=== PATIENT | female | born 1955 | race Caucasian/White ===

== ENCOUNTER 2016-07-29 04:38 | Emergency (ER) | payer OTHER ==
[2016-07-29] MEDS ORDERED: NS 1,000 ML IV ONE ×2 (04:45)
[2016-07-29] MEDS ORDERED: ONDANSETRON 4 MG/2 ML VIAL IVP ONE ×3 (04:45→07:05)
[2016-07-29] MEDS ORDERED: methylPREDNISolone SOD SUCC 125 MG/2 ML VIAL IVP ONE (04:46)
--- NOTE | 2016-07-29 04:48 | EDPHY ---
H & P Time Seen by Provider: 07/29/16 04:45 HPI/ROS: CHIEF COMPLAINT: Nausea, vomiting HISTORY OF PRESENT ILLNESS: Patient is a 61-year-old female who comes to the emergency department complaining of nausea and vomiting for the last 8 hours. She denies chest pain or shortness of breath. She states that it began shortly after dinner. She has a history of lupus and take steroids chronically. she is currently on a steroid taper down from a maximum of 40 to 12.5 mg. She states however that she does get [place] like symptoms with acute illness and is requesting a steroid bolus. she has not had a fever. She has not had any diarrhea. She denies recent travel or antibiotic use. She has a history of appendectomy, cholecystectomy and hysterectomy. REVIEW OF SYSTEMS: Constitutional: denies: chills, fever, recent illness, recent injury EENTM: denies: blurred vision, double vision, nose congestion Respiratory: denies: cough, shortness of breath Cardiac: denies: chest pain, irregular heart rate, lightheadedness, palpitations Gastrointestinal/Abdominal: See HPI Genitourinary: denies: dysuria, frequency, hematuria, pain Musculoskeletal: denies: joint pain, muscle pain Skin: denies: lesions, rash, jaundice, bruising Neurological: denies: headache, numbness, paresthesia, tingling, dizziness, weakness Hematologic/Lymphatic: denies: blood clots, easy bleeding, easy bruising Immunologic/allergic: denies: HIV/AIDS, transplant EXAM: GENERAL: Well-appearing, well-nourished and in no acute distress. HEAD: Atraumatic, normocephalic. EYES: Pupils equal round and reactive to light, extraocular movements intact, sclera anicteric, conjunctiva are normal. ENT: TMs normal, nares patent, oropharynx clear without exudates. Dry mucous membranes. NECK: Normal range of motion, supple without lymphadenopathy or JVD. LUNGS: Breath sounds clear to auscultation bilaterally and equal. No wheezes rales or rhonchi. HEART: Regular rate and rhythm without murmurs, rubs or gallops. ABDOMEN: Soft, nontender, normoactive bowel sounds. No guarding, no rebound. No masses appreciated. BACK: No CVA tenderness, no spinal tenderness, step-offs or deformities EXTREMITIES: Normal range of motion, no pitting or edema. No clubbing or cyanosis. NEUROLOGICAL: Cranial nerves II through XII grossly intact. Normal speech, normal gait. 5/5 strength, normal movement in all extremities, normal sensation PSYCH: Normal mood, normal affect. SKIN: Warm, dry, normal turgor, no visible rashes or lesions. Source: Patient Exam Limitations: No limitations - Personal History Tetanus Vaccine Date: last 10 years - Medical/Surgical History Hx Asthma: No Hx Chronic Respiratory Disease: No Hx Diabetes: No Hx Cardiac Disease: No Hx Renal Disease: No Hx Cirrhosis: No Hx Alcoholism: No - Family History Significant Family History: No pertinent family hx - Social History Smoking Status: Never smoked Alcohol Use: None Drug Use: None Constitutional: Initial Vital Signs Temperature (C) 37.1 C 07/29/16 04:40 Heart Rate 72 07/29/16 04:40 Respiratory Rate 16 07/29/16 04:40 Blood Pressure 119/72 07/29/16 04:40 O2 Sat (%) 99 07/29/16 04:40 O2 Delivery Mode Room Air Allergies/Adverse Reactions: No Known Allergies Allergy (Verified 07/29/16 05:08) Home Medications: Medication Instructions Recorded Aspirin [Aspirin 81mg (OTC)] 81 mg PO DAILY 12/30/11 Calcium Citrate [Citracal (OTC)] 400 mg PO BID 12/30/11 Cholecalciferol Vit D3 [Vitamin D3 4,000 units PO DAILY 12/30/11 2000 units (OTC)] Estradiol [Vivelle-Dot 0.075MG 0.075 mg TD MoTh@0800 12/30/11 (RX)] Folic Acid [Folic Acid 1 MG (RX)] 2 mg PO DAILY06 12/30/11 Hydroxychloroquine Sulfate 400 mg PO DAILY06 12/30/11 [Plaquenil 200 mg (RX)] Levothyroxine [Synthroid 137 mcg 137 mcg PO DAILY06 12/30/11 (RX)] Margie-3 Ethyl Est-Lovaza [Lovaza 1 2 gm PO BID 12/30/11 gm (RX)] Pharmacy Completed 12/30/2011 12/30/11 predniSONE [Prednisone] 2 mg PO DAILY06 12/30/11 Ondansetron Odt [Zofran Odt 4 mg 4 mg PO Q4 PRN #20 tab 07/29/16 (RX)] Medical Decision Making - Diagnostics EKG Interpretation: An EKG obtained and was read and documented in trace view. Please see trace view for full reading and report. Sinus rhythm, first-degree block, no acute ischemic changes ED Course/Re-evaluation: 6:00 a.m. the patient is feeling much better. She is I will treat her with Toradol and Zofran. Her abdominal exam remains benign. 7:00 a.m. the patient is feeling completely better. She is asking for doses Zofran prior to leaving. I will also give her a prescription. We discussed indications for returning. Her repeat abdominal exam is benign. Differential Diagnosis: Partial list of the Differential diagnosis considered include but were not limited to; gastritis, food poisoning and although unlikely based on the history and physical exam, I also considered pancreatitis, [place]'s, electrolyte abnormality. - Data Points Laboratory Results: Laboratory Results 07/29/16 04:40 07/29/16 04:40 Medications Given: Discontinued Medications Sodium Chloride (Ns) 1,000 mls @ 0 mls/hr IV ONCE ONE PRN Reason: Wide Open Stop: 07/29/16 04:46 Last Admin: 07/29/16 05:00 Dose: 1,000 mls Sodium Chloride (Ns) 1,000 mls @ 0 mls/hr IV ONCE ONE PRN Reason: Wide Open Stop: 07/29/16 04:46 Last Admin: 07/29/16 05:45 Dose: 1,000 mls Ketorolac Tromethamine (Toradol) 30 mg IVP EDNOW ONE Stop: 07/29/16 06:00 Last Admin: 07/29/16 06:06 Dose: 30 mg Methylprednisolone Sodium Succinate (Solu-Medrol) 125 mg IVP EDNOW ONE Stop: 07/29/16 04:47 Last Admin: 07/29/16 05:00 Dose: 125 mg Ondansetron HCl (Zofran) 4 mg IVP EDNOW ONE Stop: 07/29/16 04:46 Last Admin: 07/29/16 05:00 Dose: 4 mg Ondansetron HCl (Zofran) 4 mg IVP EDNOW ONE Stop: 07/29/16 06:00 Last Admin: 07/29/16 06:05 Dose: 4 mg Ondansetron HCl (Zofran Odt 4 Mg Prepack#2) 1 btl TAKEHOME EDNOW ONE Stop: 07/29/16 07:06 Last Admin: 07/29/16 07:38 Dose: 1 btl Ondansetron HCl (Zofran) 4 mg IVP EDNOW ONE Stop: 07/29/16 07:06 Last Admin: 07/29/16 07:38 Dose: 4 mg Departure - Departure Disposition: Home, Routine, Self-Care Clinical Impression: Acute gastroenteritis Condition: Fair Instructions: Ondansetron (By mouth), Gastroenteritis (ED) Referrals: Thompson Servin MD [Primary Care Provider] - As per Instructions Prescriptions: Ondansetron Odt [Zofran Odt 4 mg (RX)] 4 mg PO Q4 PRN #20 tab PRN Reason: Nausea & Vomiting
[2016-07-29 05:03] LABS: % IMMATURE GRANULYOCYTES 0.3 % (0.0-1.1); ABSOLUTE IMMATURE GRANULOCYTES 0.02 10^3/uL (0.00-0.10); ADD DIFF? NO; ADD MORPH? NO; ADD SCAN? NO; ATYPICAL LYMPHOCYTE FLAG 0 (0-99); FRAGMENT RBC FLAG 0 (0-99); HEMATOCRIT 41.3 % (38.0-47.0); HEMOGLOBIN 14.2 g/dL (12.6-16.3); LEFT SHIFT FLG 20 (0-99); LIPEMIA HEMOLYSIS FLAG 90 (0-99); MEAN CELL HEMOGLOBIN 32.1 pg (27.9-34.1); MEAN CELL HEMOGLOBIN CONCENTR. 34.4 g/dL (32.4-36.7); MEAN CELL VOLUME 93.2 fL (81.5-99.8); MEAN PLATELET VOLUME 9.3 fL (8.7-11.7); PLATELET CLUMPS FLAG 10 (0-99); PLATELET COUNT 312 10^3/uL (150-400); RED BLOOD CELL COUNT 4.43 10^6/uL (4.18-5.33); RED CELL DISTRIBUTION WIDTH 13.9 % (11.5-15.2)
--- NOTE | 2016-07-29 05:08 | CPEKG ---
Heart Rate: 72 RR Interval: 833 P-R Interval: 216 QRSD Interval: 112 QT Interval: 388 QTC Interval: 425 P [place]: 73 QRS [place]: 89 T Wave [place]: 73 EKG Severity - ABNORMAL ECG - EKG Impression: SINUS RHYTHM EKG Impression: FIRST DEGREE AV BLOCK EKG Impression: NONSPECIFIC INTRAVENTRICULAR CONDUCTION DELAY Electronically Signed By: Emile Lyons 29-Jul-2016 05:40:19
[2016-07-29 05:16] LABS: ANION GAP 12 mEq/L (8-16); CALCIUM 9.1 mg/dL (8.5-10.4); CARBON DIOXIDE 27 mEq/l (22-31); CHLORIDE 102 mEq/L (97-110); CREATININE 0.8 mg/dL (0.6-1.0); GLOMERULAR FILTRATION RATE > 60; GLUCOSE 144 mg/dL (70-100); POTASSIUM 3.7 mEq/L (3.5-5.2); SODIUM 141 mEq/L (134-144)
[2016-07-29 05:57] LABS: ALBUMIN 4.2 g/dL (3.5-5.0); BILIRUBIN,TOTAL 1.5 mg/dL (0.1-1.4); BILIRUBIN-CONJUGATED 0.5 mg/dL (0.0-0.5); TOTAL PROTEIN 7.2 g/dL (6.3-8.2)
[2016-07-29] MEDS ORDERED: KETOROLAC 30 MG/1 ML SDV IVP ONE (05:59)
[2016-07-29] MEDS ORDERED: ONDANSETRON 4 MG/2 ML VIAL ONE (06:00)
[2016-07-29] MEDS ORDERED: KETOROLAC 30 MG/1 ML SDV ONE (06:00)
[2016-07-29 06:07] VITALS: O2SAT 98
[2016-07-29] MEDS ORDERED: ONDANSETRON 4MG PREPACK#2 BTL TAKEHOME ONE (07:05)
[2016-07-29 07:40] VITALS: BP 96/60; PULSE 74; RESP 14; TEMP 99.5
[2016-07-29 16:23] LABS: AMYLASE 101 IU/L (30-110)
== END 2016-07-29 08:05 | disposition home or self-care (01) ==
LOC: EDUNIT#
DX: K52.9 Noninfective gastroenteritis and colitis, unspecified (principal); Z79.82 Long term (current) use of aspirin
CPT/HCPCS: 96374; J1885; J2405

== ENCOUNTER → 2016-08-05 | Outpatient (CLI) | payer OTHER ==
--- NOTE | 2016-08-05 11:05 | MR ---
MRI Cervical Spine (Without Contrast) Indication: Right arm weakness. Evaluate for C4 impingement. Technique: Sagittal T1, T2, and axial T2, 3D gradient echo MR sequences of the cervical spine without contrast. Comparison: None. Findings: C3 is retrolisthesed 2 mm on C4. Alignment is otherwise normal. Diskogenic Modic edema is p resent at C5-C6. Bone marrow signal is otherwise normal. No fracture, bone marrow replacing lesion, o r paraspinal mass. Cerebellar tonsils are in normal position. The spinal cord is minimally compresse d and deformed at C3-C4, C4-C5, and C5-C6. No cord edema, gliosis, or atrophy. C1-C2: Minimal synovial hypertrophy. Central canal is widely patent. C2-C3: Minimal disk desiccation. Facet hypertrophy results in mild bilateral neural foraminal narrowi ng. The central canal is widely patent. C3-C4: Grade 1 retrolisthesis of C3 on C4 combined with a diffuse broad-based osteophyte disk complex and facet hypertrophy results in moderate narrowing of the right central canal, severe narrowing of the right ventrolateral recess, severe narrowing of the right neural foramen and moderate stenosis of the left neural foramen. The central canal measures 6 mm AP. C4-C5: Diffuse broad-based osteophyte disk complex results in moderate central canal narrowing, worse off to the right, severe right neural foraminal stenosis and moderate left neural foraminal stenosis . The central canal measures 6 mm AP. C5-C6: Diffuse broad-based osteophyte disk complex combined with facet hypertrophy and ligamentum fla vum thickening results in moderate central canal narrowing, moderate to severe bilateral ventral late ral recess stenosis and severe left and moderate to severe right neural foraminal narrowing. Central canal measures 6 mm AP. C6-C7: Mild to moderate central canal narrowing due to broad-based disk bulge, uncovertebral and face t spurs. Moderate to severe right and moderate left neural foraminal encroachment. C7-T1: Widely patent central canal and neural foramina. No disk bulge. Impression: 1. Moderate central canal narrowing at C3-C4, C4-C5, and C5-C6 due to broad-based osteophyte disk co mplex and facet hypertrophy. The cord is minimally compressed at these levels however, no associated cord edema or gliosis. 2. Severe right neural foraminal stenosis at C3-C4 and C4-C5 due to broad-based disk bulge, facet hy pertrophy and uncovertebral spurs. 3. Severe left neural foraminal stenosis at C5-C6. Comment: Results called to Dr. Servin shortly after study completion on August 05, 2016.
== END ==
LOC: FIMAGING 09:16
PROVIDERS: ATTEND Internal Medicine
DX: M50.221 Other cervical disc displacement at C4-C5 level (principal); M48.02 Spinal stenosis, cervical region; M50.21 Other cervical disc displacement, high cervical region; M46.02 Spinal enthesopathy, cervical region

== ENCOUNTER → 2016-11-10 | Outpatient (CLI) | payer OTHER | LOC: FIMAGING 14:20 | PROVIDERS: ATTEND Internal Medicine | DX: J84.10 Pulmonary fibrosis, unspecified (principal) ==

== ENCOUNTER → 2016-11-22 | Outpatient (CLI) | payer OTHER | LOC: FIMAGING 16:31 | PROVIDERS: ATTEND Internal Medicine Rheumatology | DX: M79.641 Pain in right hand (principal); M79.642 Pain in left hand ==

== ENCOUNTER → 2016-12-02 | Outpatient (CLI) | payer OTHER | LOC: FIMAGING 16:51 | PROVIDERS: ATTEND Internal Medicine | DX: Z01.818 Encounter for other preprocedural examination (principal); M54.2 Cervicalgia ==

== ENCOUNTER → 2016-12-02 | Outpatient (CLI) | payer OTHER | LOC: FIMAGING 16:00 | PROVIDERS: ATTEND Internal Medicine | DX: Z12.31 Encounter for screening mammogram for malignant neoplasm of breast (principal); Z80.3 Family history of malignant neoplasm of breast | CPT/HCPCS: G0202 ==

== ENCOUNTER 2017-01-20 12:00 | Inpatient (IN) | payer OTHER ==
[2017-01-26] MEDS ORDERED: ceFAZolin 2 GM/DEXTROSE 100 ML IV ONE (06:00)
[2017-01-26] MEDS ORDERED: BACITRACIN 50,000 UNITS/10 ML SYR IRR ONE ×2 (08:35→14:19)
[2017-01-26] MEDS ORDERED: BUPIVACAINE/EPI 0.25% 30 ML SDV ONE (08:35)
[2017-01-26] MEDS ORDERED: PREDNISONE 5 MG PO SCH (09:00)
[2017-01-26] MEDS ORDERED: predniSONE 5 MG TAB PO SCH (09:00)
[2017-01-26] MEDS ORDERED: LR 1,000 ML IV ONE (11:10)
[2017-01-26] MEDS ORDERED: LIDOCAINE 1% 2 ML INJ ID PRN (11:10)
[2017-01-26] MEDS ORDERED: CEFAZOLIN 2 GM/DEXTROSE/100 ML BAG IV ONE (11:53)
[2017-01-26] MEDS ORDERED: MIDAZOLAM 2 MG/2 ML VIAL IVP ONE (12:08)
--- NOTE | 2017-01-26 12:09 | PDANEPAE ---
ANE History of Present Illness acdf ANE Past Medical History - Cardiovascular History Hx Hypertension: No Hx Arrhythmias: No Hx Chest Pain: No Hx Coronary Artery / Peripheral Vascular Disease: No Hx CHF / Valvular Disease: No Hx Palpitations: No - Pulmonary History Hx COPD: No Hx Asthma/Reactive Airway Disease: No Hx Recent Upper Respiratory Infection: No Hx Oxygen in Use at Home: No Hx Sleep Apnea: No Sleep Apnea Screening Result - Last Documented: Negative - Neurologic History Hx Cerebrovascular Accident: No Hx Seizures: No Hx Dementia: No - Endocrine History Hx Diabetes: No Endocrine History Comment: HYPOTHYROID - Renal History Hx Renal Disorders: Yes Renal History Comment: GETS A LOT OF BLADDER INFECTIONS - Liver History Hx Hepatic Disorders: No Hepatic History Comment: PANCREATITIS LAST OVER 10 YRS AGO - Neurological & Psychiatric Hx Hx Neurological and Psychiatric Disorders: Yes Neurological / Psychiatric History Comment: SITUATIONAL ANXIETY/PANIC ATTACKS - Cancer History Hx Cancer: No - Congenital Disorder History Hx Congenital Disorders: No - GI History Hx Gastrointestinal Disorders: Yes Gastrointestinal History Comment: DIVERTICULOSIS - Other Health History Other Health History: LUPUS FLARE 07/2016. RELATED TO NORO VIRUS. SEVERE EYE KERATITIS AND ULCERATIONS. RECENTLY LOW HGB AND HCT. TAKING IRON. HAIR FALLING OUT. SPINAL STENOSIS/RT ARM PARALYSIS - Chronic Pain History Chronic Pain: Yes (SKIN) - Surgical History Prior Surgeries: LETA. HYSTERECTOMY. APPY. LUMBAR LAMINECTOMY. RT LACRIMAL GLAND. LAISHA AUGMENTATION WITH REMVL AND REPLACEMENT ANE Review of Systems - Exercise capacity METS (RN): 4 METS ANE Patient History - Allergies Allergies/Adverse Reactions: No Known Allergies Allergy (Verified 07/29/16 05:08) - Home Medications Home Medications: Folic Acid [Folic Acid 1 MG (RX)] 3 mg PO DAILY06 12/30/11 [Last Taken 01/19/17] Ascorbic Acid [Vitamin C] 200 mg PO DAILY 12/21/16 [Last Taken 01/19/17] Cholecalciferol (Vitamin D3) [Vitajoy Daily D] 5,000 unit PO EVERY OTHER DAY [Last Taken 01/19/17] Cholecalciferol (Vitamin D3) [Vitajoy Daily D] 7,500 unit PO EVERY OTHER DAY [Last Taken 01/19/17] Estradiol [Vivelle-Dot 0.0375MG (*)] 0.0375 mg TD TuFr@0800 12/21/16 [Last Taken 01/26/17] Ferrous Sulfate [Iron] 325 mg PO DAILY 12/21/16 [Last Taken 01/25/17] Herbals/Supplements -Info Only 1 ea PO DAILY 12/21/16 [Last Taken 01/19/17] Levothyroxine [Synthroid 125 mcg (*)] 125 mcg PO DAILY06 12/21/16 [Last Taken ] Liothyronine Sodium [Cytomel 5 mcg (*)] 5 mcg PO DAILY 12/21/16 [Last Taken ] Multivitamins [Multivitamin (*)] 1 each PO DAILY 12/21/16 [Last Taken 01/19/17] [place]-3 Ethyl Est-Lovaza [Lovaza 1 gm (*)] 4 gm PO DAILY 12/21/16 [Last Taken ] Vitamin K2 90 mcg PO DAILY 12/21/16 [Last Taken 01/19/17] predniSONE [Prednisone] 5 mg PO DAILY 12/21/16 [Last Taken 01/26/17] Estradiol [VAGIFEM] 10 mcg VG Q3D 12/27/16 [Last Taken 01/19/17] - NPO status NPO Since - Liquids (Date): 01/26/17 NPO Since - Liquids (Time): 00:30 NPO Since - Solids (Date): 01/25/17 NPO Since - Solids (Time): 22:00 - Anes Hx Anes Hx: no prior problems - Smoking Hx Smoking Status: Never smoked ANE Labs/Vital Signs - Vital Signs Blood Pressure: 106/72 Heart Rate: 64 Respiratory Rate: 12 O2 Sat (%): 94 Height: 170.82 cm Weight: 56.245 kg ANE Physical Exam - Airway Mallampati Score: Class 2 Mouth exam: normal dental/mouth exam - Pulmonary Pulmonary: no respiratory distress - Cardiovascular Cardiovascular: regular rate and rhythym - ASA Status ASA Status: II ANE Anesthesia Plan Anesthesia Plan: general endotracheal anesthesia
[2017-01-26] MEDS ORDERED: ROCURONIUM 50 MG/5 ML VIAL ONE (12:21)
[2017-01-26] MEDS ORDERED: LIDOCAINE 2% 5 ML SDV ONE (12:21)
[2017-01-26] MEDS ORDERED: HYDROCORTISONE 100 MG/2 ML VIAL ONE (12:21)
[2017-01-26] MEDS ORDERED: PROPOFOL/EMULSION 500 MG/50 ML BOTTLE IV ONE ×2 (12:27→15:35)
[2017-01-26] MEDS ORDERED: REMIFENTANIL HCL 1 MG VIAL ONE ×2 (12:27→15:35)
[2017-01-26] MEDS ORDERED: PROPOFOL 200 MG/20 ML VIAL ONE (12:27)
[2017-01-26] MEDS ORDERED: fentaNYL 100 MCG/2 ML INJ ONE ×2 (12:27→17:41)
[2017-01-26] MEDS ORDERED: PHENYLEPHRINE 10 MG/ML SDV ONE (12:28)
[2017-01-26] MEDS ORDERED: THROMBIN (BOVINE) 5,000 UNIT VIAL TP ONE (12:35)
--- NOTE | 2017-01-26 12:46 | PDHPUP ---
History & Physical Update H&P update statement: This history and physical update is based on an assessment of the patient which was completed after admission or registration (within 24 hours), but prior to the surgery/procedure. H&P update: H&P reviewed & patient examined, no change in patient's condition since H&P completed
[2017-01-26] MEDS ORDERED: oxyCODONE IR 5 MG TAB PO PRN (12:48)
[2017-01-26] MEDS ORDERED: MAGNESIUM HYDROXIDE 30 ML UDCUP PO PRN (12:48)
[2017-01-26] MEDS ORDERED: BISACODYL 10 MG SUPP PR PRN (12:48)
[2017-01-26] MEDS ORDERED: LACTULOSE 20 GM/30 ML UDCUP PO PRN (12:48)
[2017-01-26] MEDS ORDERED: morphINE PCA 30 MG/30 ML PCA IV PRN (12:48)
[2017-01-26] MEDS ORDERED: NALOXONE HCL 0.4 MG/ML INJ IVP PRN (12:48)
[2017-01-26] MEDS ORDERED: ONDANSETRON DISINTEGRATING 4 MG TAB PO PRN (12:48)
[2017-01-26] MEDS ORDERED: ONDANSETRON 4 MG/2 ML VIAL ONE (13:41)
[2017-01-26] MEDS ORDERED: GLYCOPYRROLATE 0.2 MG/1 ML VIAL ONE (13:43)
[2017-01-26] MEDS ORDERED: MIDAZOLAM 2 MG/2 ML VIAL ONE (16:38)
[2017-01-26] MEDS ORDERED: MEPERIDINE 25 MG/ML SYR IVP PRN (17:12)
[2017-01-26] MEDS ORDERED: LR 500 ML IV PRN (17:12)
[2017-01-26] MEDS ORDERED: ALBUTEROL 3 ML DEYVIAL IH PRN (17:12)
[2017-01-26] MEDS ORDERED: HYDROmorphONE/DILAUDID 1 MG/ML SYR ONE ×2 (17:32→18:29)
--- NOTE | 2017-01-26 17:32 | POSTANESTH ---
Post Anesthetic Evaluation Cardiovascular Status: Normal, Stable Respiratory Status: Normal, Stable, Requires Airway Assist Pain Control: Adequate, Prn Tx Ordered Nausea/Vomiting Control: Adequate, Prn Tx Ordered Complications Possibly Related to Anesthesia: None Noted
--- NOTE | 2017-01-26 17:34 | SOAPPROG ---
SOAP Progress Note Assessment/Plan: Post Op Visit: S: Awake and alert. Pt with expected neck pain. O: AFVSS/PERRLA/EOMI no droop CN 2-12 grossly intact +lt touch 5/5 BUE/BLE = CDI neck soft and supple A/P: 61 yo female that is s/p ACDF C3-C6 -orders in place -call with any questions or concerns -pt seen by Dr Rea as well -collar in place 01/26/17 17:29 Objective: Vital Signs Temp Pulse Resp BP Pulse Ox 36.7 C 64 12 106/72 94 01/26/17 12:11 01/26/17 12:11 01/26/17 12:11 01/26/17 12:11 01/26/17 12:11 ICD10 Worksheet Patient Problems: Problems Problem Status Onset Arthrodesis status Acute Cervical radicular pain Acute Cervical spinal stenosis Acute - ICD10 Problem Qualifiers (1) Cervical spinal stenosis (2) Arthrodesis status (3) Cervical radicular pain
[2017-01-26] MEDS: HYDROmorphONE/DILAUDID 1 MG/ML SYR IVP PRN ×6 (17:38→19:08)
[2017-01-26] MEDS: fentaNYL 100 MCG/2 ML INJ IVP PRN ×2 (17:38→17:52)
[2017-01-26] MEDS ORDERED: DIAZEPAM 10 MG/2 ML SYR ONE (17:57)
[2017-01-26] MEDS: DIAZEPAM 10 MG/2 ML SYR IVP PRN ×2 (18:03→18:18)
[2017-01-26] MEDS: OMEGA-3 ETHYL EST-LOVAZA 1 GM CAP PO SCH (19:40)
[2017-01-26] MEDS: NON-FORMULARY NEW DRUG (Estradiol [Vagifem] 10 MCG) VG SCH (19:40)
[2017-01-26] MEDS: FERROUS SULFATE 325 MG TAB PO SCH (19:40)
[2017-01-26] MEDS: LIOTHYRONINE SODIUM 5 MCG TAB PO SCH (19:40)
[2017-01-26] MEDS: NS 1,000 ML IV SCH (20:46)
[2017-01-26] MEDS: METHOCARBAMOL 750 MG TAB PO PRN (20:56)
[2017-01-26] MEDS: ACETAMINOPHEN 500 MG TAB PO SCH ×2 (21:32→22:09)
[2017-01-26] MEDS: FAMOTIDINE 20 MG TAB PO SCH (21:45)
[2017-01-26] MEDS: SENNOSIDES/DOCUSATE SODIUM TAB PO SCH (21:46)
[2017-01-26] MEDS: ceFAZolin 2 GM/DEXTROSE 100 ML IV SCH (22:06)
[2017-01-26] MEDS ORDERED: KETOROLAC 30 MG/1 ML SDV IVP ONE (22:30)
[2017-01-26] MEDS: oxyCODONE IR 5 MG TAB PO PRN ×2 (23:00→23:11)
[2017-01-26] MEDS: ONDANSETRON 4 MG/2 ML VIAL IVP PRN (23:02)
[2017-01-26] MEDS: DIAZEPAM 5 MG TAB PO PRN (23:07)
[2017-01-26] MEDS: PANTOPRAZOLE SODIUM 40 MG in NS 100 ML IV SCH (23:11)
[2017-01-27] MEDS: METHOCARBAMOL 750 MG TAB PO PRN (02:21)
[2017-01-27] MEDS: ACETAMINOPHEN 500 MG TAB PO SCH ×4 (02:28→22:27)
[2017-01-27] MEDS: oxyCODONE IR 5 MG TAB PO PRN ×2 (02:29→22:18)
[2017-01-27] MEDS: ONDANSETRON 4 MG/2 ML VIAL IVP PRN ×2 (02:47→07:44)
--- NOTE | 2017-01-27 04:19 | GOP ---
[f rep st] OPERATIVE REPORT DATE OF OPERATION: 01/26/2017 SURGEON: Ajay Rea MD SKI PATROLLER: Jarod Ramirez PA-C. PREOPERATIVE DIAGNOSIS: Severe cervical spondylosis with degenerative disk disease and stenosis wit h severe multilevel spinal and foraminal stenosis C3-4, 4-5, 5-6, 6-7. POSTOPERATIVE DIAGNOSIS: Severe cervical spondylosis with degenerative disk disease and stenosis wi th severe multilevel spinal and foraminal stenosis C3-4, C4-5, C5-6, C6-7. PROCEDURE PERFORMED: Anterior cervical diskectomy with decompression and arthrodesis at C3-4, C4-5, C5-6, that is 3 levels, (76914, [id number] x2), placement of biomechanical intervertebral device x3, ([phone] x3), anterior cervical instrumentation C3, C4, C5, C6 (71178), and same incision bone graft harv est, microscope. FINDINGS: ESTIMATED BLOOD LOSS: 50 cc. INDICATIONS: The patient is a 61-year-old terrible cervicalgia and right cervical radicular symptom s whose MRI demonstrated 4-level disease principally at C3-4, C4-5, C5-6, C6-7. Indeed there was so me foraminal stenosis on the right at C6-7. I felt that in time she may require surgery there, but C3-4, C4-5, C5-6 were remarkably terrible. These almost certainly had to be the symptomatic level. She understood after fixing these 3 that may require in short order additional surgery at C6-7, but I do not routinely suggest doing 4-level cervical diskectomy and fusions, as this can be a very robby llenging surgery to recover from. She accepted my suggestion and she did want to proceed. She knew there was a risk of major vascular injury, including injury that could lead to her . She knew there was risk of esophageal injury, carotid injury, recurrent laryngeal nerve injury, and swallowi ng dysfunction, hematoma at the site of the surgery requiring additional operation, as well as spina l cord injury, CSF leak, and nerve injury. She wanted to proceed despite these risks. DESCRIPTION OF PROCEDURE: The patient was taken to the operating room, placed in a supine position. General anesthesia was begun. She was carefully positioned on the operating room table with a mid line shoulder roll. Her neck was kept neutral. Occiput was extended. She was sterilely prepped an d draped in the usual fashion. We used the superior left-sided neck crease for our incision. We mad e a full thickness with a scalpel blade. The subcutaneous tissue was dissected with Bovie cautery laura cunha platysma and we used a combination of sharp and blunt dissection to work our way down medial to the sternocleidomastoid and lateral to the strap muscles, down to the prevertebral space. Locali zing x-rays were taken. The longus colli muscles were dissected off the spine. There were large jono tral osteophytes at C3-4 and at C5-6, and these were removed. We prepped the ventral surface of the vertebral body for acceptance of our plate that would come later. We distracted at C5-6, and shot a fluoroscopic image and under the microscope, we removed the C5-6 disk and the cartilaginous endpla aquiles. We drilled subchondral bone and harvested this for autologous grafting purposes and decompress ed both neural foramen bilaterally at C5-6. The right foramen was somewhat worse than the left, but we performed bilateral decompressions. We removed our distraction pins and we did likewise at C4-5 and then again at C3-4 removing the disk, the cartilaginous endplates, drilling the posterior osteo phytes. We opened the posterior longitudinal ligament, decompressing the thecal sac. We decompress ed from pedicle to pedicle. We chose a 6 mm graft for 3-4 and 5-6 and a 7 mm for C4-5. They were p acked with a large amount of bone autograft and fashioned to fit in the space and we put all 3 of th [address] in place. A nice fit was obtained. An x-ray was done and demonstrated good jewish of cerv ical lordosis. We then prepped the vertebral service body once again for acceptance of the plate, a nd we chose a 57 mm plate. We shot an x-ray confirming the length of the plate and then, put 1 scre w in the top, 1 screw in the bottom after confirming length and then shot another x-ray. We were epps ppy with these and then we put the remaining screws in and we locked them all according to company s pecification and verified this with the people in the room. It was all visually verified. We then irrigated with large amounts of antibiotic saline, placed some additional bone autograft adjacent to our intervertebral devices at each of the disk spaces and then placed some Marcaine with epinephrin e in the wound, and then closed the incision in multiple layers using Vicryl sutures. The skin was closed with interrupted Vicryl sutures. The patient was reversed from anesthesia, extubated, and tr ansferred to recovery room in stable condition. There were no complications. COMPLICATION: None. INSTRUMENTATION: ORDISSIMOtronic 57 mm ZEVO plate with 3.5 x 15 mm screws. We used two 6 x 16 x 14 anato bill PTC cages and we used a 7 x 16 x 14 mm anatomic PTC cage. /[id number]/MODL
[2017-01-27] MEDS: LEVOTHYROXINE 125 MCG TAB PO SCH ×2 (04:29→08:15)
[2017-01-27] MEDS: DIAZEPAM 5 MG TAB PO PRN ×2 (04:29→13:25)
[2017-01-27] MEDS: ceFAZolin 2 GM/DEXTROSE 100 ML IV SCH (04:29)
[2017-01-27] MEDS: FOLIC ACID 1 MG TAB PO SCH (04:29)
[2017-01-27] MEDS: diphenhydrAMINE 25 MG CAP PO PRN (05:22)
[2017-01-27] MEDS ORDERED: HYDROmorphONE/DILAUDID 6 MG/30 ML PCA IV PRN (06:51)
[2017-01-27] MEDS ORDERED: LORazepam 1 MG TAB PO PRN (06:52)
[2017-01-27] MEDS ORDERED: PROMETHAZINE HCL 25 MG TAB PO PRN (06:52)
--- NOTE | 2017-01-27 06:56 | NEUSURGPN ---
Date of Surgery: 01/26/17 Post Op Day: 1 Assessment/Plan: Assessment: 61 yo female that is s/p ACDF C3-C6 POD #1 Plan: -pt with some expected neck pain as well as swallowing issues-able to tolerate PO at this time -pt states that MS is not doing well with her and we will try dilaudid -will add Ativan for some anxiety as well -added phenergan for nausea control -post op xrays pending -collar at all times -PT/OT/ST ordered -pt understands and agrees -orders in place -call with any questions or concerns -pt seen by Dr Rea as well -collar in place 01/26/17 17:29 Subjective: Awake and alert. NAD. Eating/drinking and voiding. No f/c/n/v/d. No epps/cp/ abd/or gu complaints. Objective: AFVSS/PERRLA/EOMI no droop CN 2-12 grossly intact +lt touch 5/5 BUE/BLE = CDI neck soft and supple-no induration Neuro Check Frequency: per routine Urinary Catheter in Place: No Catheter Insertion Date: 01/26/17 - Physician Discussed Patient with : Álvaro Patient Seen by : Álvaro Neurosurgery Physical Exam - Vitals, I&O, Labs I and O 01/26/17 01/27/17 01/28/17 05:59 05:59 05:59 Intake Total 3430 Output Total 1000 Balance 2430 Weight 56.245 kg Intake: Oral (ml) 830 IV Intake (ml) 1500 IV Infused (ml) 1100 Ns 1,000 ml @ 100 mls/hr 800 IV CONT [facility] Rx#: [id number] Pantoprazole Sodium 40 mg 100 In Ns 100 ml @ 200 mls/ hr IV DAILY [facility] Rx#: [id number] ceFAZolin 2 GM/DEXTROSE 200 100 ml @ 200 mls/hr IV Q8H [facility] Rx#:[id number] Output: Urine (ml) 1000 Catheter 1000 Vital Signs Temp Pulse Resp BP Pulse Ox 37.4 C 71 18 123/71 H 100 01/27/17 02:53 01/27/17 02:53 01/27/17 02:53 01/27/17 02:53 01/27/17 02:53 ICD10 Worksheet Patient Problems: Problems Problem Status Onset Arthrodesis status Acute Cervical radicular pain Acute Cervical spinal stenosis Acute - ICD10 Problem Qualifiers (1) Cervical spinal stenosis (2) Arthrodesis status (3) Cervical radicular pain
[2017-01-27] MEDS ORDERED: HYDROmorphONE/DILAUDID 2 MG TAB PO PRN (06:57)
[2017-01-27] MEDS ORDERED: HYDROmorphONE/DILAUDID 1 MG/ML SYR IVP PRN (06:57)
[2017-01-27] MEDS: LORazepam 2 MG/ML INJ IVP PRN (07:58)
[2017-01-27] MEDS: NS 1,000 ML IV SCH ×2 (08:13→19:15)
--- NOTE | 2017-01-27 09:32 | SOAPPROG ---
SOAP Progress Note Assessment/Plan: Assessment:Anxiety and pain management issue. No fever but feeling "hot". Likely has atelectasis causing those symptoms. Plan:Incentive spirometer. I will be back around lunch and discuss her options for better anxiety management. As she is falling asleep when I speak with her, I will let her rest for now. Have increased prednisone to 5 mg BID for now to prevent stress Chuck's. 01/27/17 09:31 Subjective: Had some pain and nausea last night. SHe had a panic attack after the surgery which has improved but remains an underlyiing issue. She feels hot this morning , like she is ggetting a fever. Objective: Vital Signs Temp Pulse Resp BP Pulse Ox 98.6 F 71 16 155/94 H 99 01/27/17 08:00 01/27/17 08:00 01/27/17 08:00 01/27/17 08:00 01/27/17 08:45 01/26/17 01/27/17 01/28/17 05:59 05:59 05:59 Intake Total 3430 Output Total 1000 Balance 2430 Afebrile. She will fall asleep while I am talking with her however her blood pressure and saturations remain OK on 2 L of O2. ICD10 Worksheet Patient Problems: Problems Problem Status Onset Arthrodesis status Acute Cervical radicular pain Acute Cervical spinal stenosis Acute
[2017-01-27] MEDS: FAMOTIDINE 20 MG TAB PO SCH ×2 (10:13→22:19)
[2017-01-27] MEDS: OMEGA-3 ETHYL EST-LOVAZA 1 GM CAP PO SCH (10:13)
[2017-01-27] MEDS: LIOTHYRONINE SODIUM 5 MCG TAB PO SCH ×2 (10:13→10:26)
[2017-01-27] MEDS: FERROUS SULFATE 325 MG TAB PO SCH (10:13)
[2017-01-27] MEDS: SENNOSIDES/DOCUSATE SODIUM TAB PO SCH ×2 (10:14→22:27)
[2017-01-27] MEDS: PANTOPRAZOLE SODIUM 40 MG in NS 100 ML IV SCH (10:22)
[2017-01-27] MEDS: predniSONE 5 MG TAB PO SCH ×2 (10:26→18:03)
[2017-01-27] MEDS ORDERED: SODIUM CL NASAL GEL 14.1 GM TUBE TP PRN (17:08)
[2017-01-27] MEDS: ONDANSETRON DISINTEGRATING 4 MG TAB PO PRN (18:03)
[2017-01-27] MEDS ORDERED: methylPREDNISolone SOD SUCC 40 MG/ML VIAL IVP ONE (19:49)
--- NOTE | 2017-01-27 19:54 | SOAPPROG ---
SOAP Progress Note Assessment/Plan: Assessment:Anxiety and pain management issue. No fever but feeling "hot". Likely has atelectasis causing those symptoms. Probably has some mild Addisonian symptoms. Plan: Will give an additional dose of IV solumedrol to ensure that she does not slip into ful Addisonian crisis. 01/27/17 09:31 01/27/17 19:54 Subjective: Still having a lot of pain, having nausea from one dose of hydromorphone. Not resolving with zofran. Objective: Vital Signs Temp Pulse Resp BP Pulse Ox 97.4 F 63 16 147/87 H 100 01/27/17 18:00 01/27/17 18:00 01/27/17 18:00 01/27/17 18:00 01/27/17 18:00 01/26/17 01/27/17 01/28/17 05:59 05:59 05:59 Intake Total 3430 1800 Output Total 1000 1100 Balance 2430 700 More alert however she falls asleep easily. Lungs clear. Oxygen saturations good on low flow O2. ICD10 Worksheet Patient Problems: Problems Problem Status Onset Arthrodesis status Acute Cervical radicular pain Acute Cervical spinal stenosis Acute
[2017-01-28] MEDS: LORazepam 2 MG/ML INJ IVP PRN (01:57)
[2017-01-28] MEDS: oxyCODONE IR 5 MG TAB PO PRN ×2 (05:57→23:50)
[2017-01-28] MEDS: LEVOTHYROXINE 125 MCG TAB PO SCH (05:57)
[2017-01-28] MEDS: DIAZEPAM 10 MG/2 ML SYR IVP PRN (06:17)
[2017-01-28] MEDS: ACETAMINOPHEN 500 MG TAB PO SCH ×3 (06:22→20:55)
[2017-01-28] MEDS: FOLIC ACID 1 MG TAB PO SCH (06:44)
[2017-01-28] MEDS ORDERED: ESTRADIOL VIVELLE 0.0375 MG PATCH TD SCH (08:00)
[2017-01-28] MEDS: SENNOSIDES/DOCUSATE SODIUM TAB PO SCH ×2 (09:00→20:49)
[2017-01-28] MEDS: OMEGA-3 ETHYL EST-LOVAZA 1 GM CAP PO SCH (09:00)
[2017-01-28] MEDS: FERROUS SULFATE 325 MG TAB PO SCH (09:00)
--- NOTE | 2017-01-28 09:07 | NEUSURGPN ---
Assessment/Plan: Assessment: 61 yo female that is s/p ACDF C3-C6 POD #2 Plan: -pt with some expected neck pain as well as swallowing issues-able to tolerate PO at this time -Optimize pain management, but avaible over sedation. Patient is slow to response this morning to questions and appear quite groggy. -post op xrays pending -collar at all times- Recommend hard collar. -PT/OT/ST ordered- Advance diet per speech -call with any questions or concerns Subjective: Dysphagia, posteriot nekc pain but resting comfortably this morning Objective: NAD MAEx4 5/5 and equal in BUE and BLE, excpet right deltoid /5. Incision c/d/i Catheter Insertion Date: 01/26/17 - Physician Discussed Patient with .: [facility] Physical Exam - Vitals, I&O, Labs I and O 01/27/17 01/28/17 01/29/17 05:59 05:59 05:59 Intake Total 3430 2400 Output Total 1000 1800 Balance 2430 600 Weight 56.245 kg Intake: Oral (ml) 830 600 IV Intake (ml) 1500 1200 IV Infused (ml) 1100 600 Ns 1,000 ml @ 100 mls/hr 800 600 IV CONT ASHKAN Rx#: [id number] Pantoprazole Sodium 40 mg 100 In Ns 100 ml @ 200 mls/ hr IV DAILY ASHKAN Rx#: [id number] ceFAZolin 2 GM/DEXTROSE 200 100 ml @ 200 mls/hr IV Q8H ASHKAN Rx#:[id number] Output: Urine (ml) 1000 1800 Bedside Commode 400 Catheter 1000 700 Toilet 700 Other: Intake Quantity Yes Sufficient Number of Voids Toilet 1 Vital Signs Temp Pulse Resp BP Pulse Ox 37.3 C 64 18 141/74 H 94 01/28/17 03:07 01/28/17 03:07 01/28/17 03:07 01/28/17 03:07 01/28/17 03:07 ICD10 Worksheet Patient Problems: Problems Problem Status Onset Arthrodesis status Acute Cervical radicular pain Acute Cervical spinal stenosis Acute
[2017-01-28 09:38] LABS: % IMMATURE GRANULYOCYTES 0.3 % (0.0-1.1); ABSOLUTE IMMATURE GRANULOCYTES 0.03 10^3/uL (0.00-0.10); ADD DIFF? NO; ADD MORPH? NO; ADD SCAN? NO; ATYPICAL LYMPHOCYTE FLAG 20 (0-99); FRAGMENT RBC FLAG 0 (0-99); HEMATOCRIT 32.4 % (38.0-47.0); HEMOGLOBIN 11.2 g/dL (12.6-16.3); LEFT SHIFT FLG 20 (0-99); LIPEMIA HEMOLYSIS FLAG 90 (0-99); MEAN CELL HEMOGLOBIN 32.7 pg (27.9-34.1); MEAN CELL HEMOGLOBIN CONCENTR. 34.6 g/dL (32.4-36.7); MEAN CELL VOLUME 94.5 fL (81.5-99.8); PLATELET CLUMPS FLAG 0 (0-99); PLATELET COUNT 223 10^3/uL (150-400); RED BLOOD CELL COUNT 3.43 10^6/uL (4.18-5.33); RED CELL DISTRIBUTION WIDTH 12.2 % (11.5-15.2)
[2017-01-28 09:51] LABS: ALANINE AMINOTRANSFERASE 33 IU/L (9-52); ALBUMIN 3.6 g/dL (3.5-5.0); ALKALINE PHOSPHATASE 51 IU/L (38-126); ANION GAP 10 mEq/L (8-16); ASPARTATE AMINOTRANSFERASE 28 IU/L (14-46); BILIRUBIN,TOTAL 0.7 mg/dL (0.1-1.4); CARBON DIOXIDE 24 mEq/l (22-31); CHLORIDE 99 mEq/L (97-110); CREATININE 0.7 mg/dL (0.6-1.0); GLOMERULAR FILTRATION RATE > 60; GLUCOSE 120 mg/dL (70-100); POTASSIUM 4.2 mEq/L (3.5-5.2); SODIUM 133 mEq/L (134-144); TOTAL PROTEIN 6.2 g/dL (6.3-8.2)
[2017-01-28] MEDS: LIOTHYRONINE SODIUM 5 MCG TAB PO SCH (10:00)
[2017-01-28] MEDS: predniSONE 5 MG TAB PO SCH ×2 (10:01→17:17)
[2017-01-28] MEDS: PANTOPRAZOLE SODIUM 40 MG in NS 100 ML IV SCH ×2 (10:03→12:54)
[2017-01-28] MEDS: METHOCARBAMOL 750 MG TAB PO PRN (10:25)
--- NOTE | 2017-01-28 11:07 | SOAPPROG ---
SOAP Progress Note Assessment/Plan: Assessment:Anxiety and pain management issue. Low grade fever last night. Likely has atelectasis causing those symptoms. Probably has some mild Addisonian symptoms. Plan: Will give additional doses of IV Solumol. follow symptoms. Concerned about anxiety. 01/27/17 09:31 01/27/17 19:54 01/28/17 10:52 Subjective: NOt feeling well, Uncomfortable (however she falls asleep as soon as I start talking to her) Objective: Vital Signs Temp Pulse Resp BP Pulse Ox 99.2 F 64 18 141/74 H 94 01/28/17 03:07 01/28/17 03:07 01/28/17 03:07 01/28/17 03:07 01/28/17 03:07 Laboratory Results 01/28/17 09:27 01/28/17 09:27 01/27/17 01/28/17 01/29/17 05:59 05:59 05:59 Intake Total 3430 2400 Output Total 1000 1800 Balance 2430 600 Very lethargic. Cannot keep awake when I am speaking. Will fall asleep every minute or two regardless of what is happening however she does not fall asleep when she is speaking. Lungs clear. COR RRR. oxygen sat OK but fluctuating. ICD10 Worksheet Patient Problems: Problems Problem Status Onset Arthrodesis status Acute Cervical radicular pain Acute Cervical spinal stenosis Acute
[2017-01-28] MEDS: FAMOTIDINE 20 MG TAB PO SCH (12:15)
[2017-01-28] MEDS: PANTOPRAZOLE SODIUM 40 MG TAB PO SCH (12:26)
[2017-01-28] MEDS: methylPREDNISolone SOD SUCC 40 MG/ML VIAL IVP SCH ×2 (12:26→20:49)
[2017-01-28 13:16] LABS: COLOR PALE YELLOW; LEUKOCYTE ESTERASE,URINE NEGATIVE (NEGATIVE); NITRITE,URINE NEGATIVE (NEGATIVE)
[2017-01-28 13:48] LABS: BACTERIA 4+ /hpf (NONE SEEN)
--- NOTE | 2017-01-28 19:40 | SOAPPROG ---
SOAP Progress Note Assessment/Plan: Assessment:Anxiety and pain management issue. Low grade fever last night. Likely has atelectasis causing those symptoms. Probably has some mild Addisonian symptoms. UTI Plan: Will give additional doses of IV Solumol. follow symptoms. Place on Bactrim DS pending cultures. 01/27/17 09:31 01/27/17 19:54 01/28/17 10:52 01/28/17 19:39 Subjective: Feeling much better Objective: Vital Signs Temp Pulse Resp BP Pulse Ox 98.9 F 66 18 119/77 89 L 01/28/17 16:00 01/28/17 16:00 01/28/17 16:00 01/28/17 16:00 01/28/17 16:00 Laboratory Results 01/28/17 09:27 01/28/17 09:27 01/27/17 01/28/17 01/29/17 05:59 05:59 05:59 Intake Total 3430 2400 400 Output Total 1000 1800 1300 Balance 2430 600 -900 Alert, eating, pain improved. staying awake. Urine strongly suggestie of UTI ICD10 Worksheet Patient Problems: Problems Problem Status Onset Arthrodesis status Acute Cervical radicular pain Acute Cervical spinal stenosis Acute
[2017-01-28] MEDS: SULFAMETHOX/TMP 800/160 MG 1 TAB PO SCH (20:49)
[2017-01-29] MEDS: ACETAMINOPHEN 500 MG TAB PO SCH ×2 (05:13→14:09)
[2017-01-29] MEDS: LEVOTHYROXINE 125 MCG TAB PO SCH (05:13)
[2017-01-29] MEDS: oxyCODONE IR 5 MG TAB PO PRN (05:13)
[2017-01-29] MEDS: FOLIC ACID 1 MG TAB PO SCH (05:14)
[2017-01-29] MEDS: METHOCARBAMOL 750 MG TAB PO PRN (09:44)
[2017-01-29] MEDS: predniSONE 5 MG TAB PO SCH ×2 (09:46→18:30)
[2017-01-29] MEDS: LIOTHYRONINE SODIUM 5 MCG TAB PO SCH (09:49)
[2017-01-29] MEDS: SENNOSIDES/DOCUSATE SODIUM TAB PO SCH ×2 (09:57→21:18)
[2017-01-29] MEDS: SULFAMETHOX/TMP 800/160 MG 1 TAB PO SCH ×2 (09:58→21:19)
[2017-01-29] MEDS: PANTOPRAZOLE SODIUM 40 MG TAB PO SCH (09:58)
[2017-01-29] MEDS: ENOXAPARIN 40 MG/0.4 ML SYR SC SCH (09:59)
[2017-01-29] MEDS ORDERED: traMADol 50 MG TAB PO PRN (09:59)
[2017-01-29] MEDS: POLYETHYLENE GLYCOL 3350 17 GM PKT PO PRN (10:01)
[2017-01-29] MEDS: ONDANSETRON 4 MG/2 ML VIAL IVP PRN ×2 (10:01→18:52)
[2017-01-29] MEDS: methylPREDNISolone SOD SUCC 40 MG/ML VIAL IVP SCH (10:06)
--- NOTE | 2017-01-29 10:08 | NEUSURGPN ---
Date of Surgery: 01/26/17 Post Op Day: 3 Assessment/Plan: Assessment: 61 yo female that is s/p ACDF C3-C6 POD #3 Plan: -pt with some expected neck pain-able to tolerate PO at this time -Optimize pain management, adjusting pain medications today in effort for possible discharge home later today or tomorrow -post op xrays stable hardware placement -collar at all times- Recommend hard collar. -PT/OT/ST ordered- Advance diet per speech -call with any questions or concerns Subjective: Patient have neck, shoulder pain Objective: NAD MAEx4 5/5 and equal in BUE and BLE, excpet right deltoid 4/5. Incision c/d/i Neuro Check Frequency: per routine Urinary Catheter in Place: No Catheter Insertion Date: 01/26/17 - Physician Discussed Patient with : [facility]surgery Physical Exam - Vitals, I&O, Labs I and O 01/28/17 01/29/17 01/30/17 05:59 05:59 05:59 Intake Total 2400 800 Output Total 1800 1300 Balance 600 -500 Intake: Oral (ml) 600 400 IV Intake (ml) 1200 IV Infused (ml) 600 400 Ns 1,000 ml @ 100 mls/hr 600 400 IV CONT ASHKAN Rx#: [id number] Output: Urine (ml) 1800 1300 Bedside Commode 400 Catheter 700 Toilet 700 1300 Other: Intake Quantity Yes Yes Sufficient Number of Voids Toilet 1 2 Vital Signs Temp Pulse Resp BP Pulse Ox 37.1 C 83 18 117/72 96 01/29/17 07:29 01/29/17 07:29 01/29/17 07:29 01/29/17 07:29 01/29/17 07:29 Laboratory Results 01/28/17 09:27 01/28/17 09:27 ICD10 Worksheet Patient Problems: Problems Problem Status Onset Arthrodesis status Acute Cervical radicular pain Acute Cervical spinal stenosis Acute
[2017-01-29] MEDS: NON-FORMULARY NEW DRUG (Estradiol [Vagifem] 10 MCG) VG SCH (10:11)
[2017-01-29] MEDS: OMEGA-3 ETHYL EST-LOVAZA 1 GM CAP PO SCH (10:12)
[2017-01-29] MEDS: FERROUS SULFATE 325 MG TAB PO SCH (10:12)
[2017-01-29] MEDS: HYDROCODONE/APAP 10/325 TAB PO PRN ×3 (10:15→18:53)
[2017-01-29] MEDS: METHOCARBAMOL 750 MG TAB PO SCH ×3 (14:05→21:20)
[2017-01-29] MEDS ORDERED: HYDROCODONE/APAP 10/325 TAB PO PRN (14:33)
[2017-01-29] MEDS: diphenhydrAMINE 25 MG CAP PO PRN (21:39)
--- NOTE | 2017-01-29 23:50 | SOAPPROG ---
SOAP Progress Note Assessment/Plan: Assessment:Anxiety and pain management issue. Low grade fever last night. Likely has atelectasis causing those symptoms. Probably has some mild Addisonian symptoms. UTI Probable allergy to Bactrim Plan: Stop bactrim. Place on benadryl tonight. REevaluate antibiotic for UTI in AM based on culture result. Place on Bactrim DS pending cultures. 01/27/17 09:31 01/27/17 19:54 01/28/17 10:52 01/28/17 19:39 01/29/17 23:49 Subjective: Feeling much better. Noticed itching around her eyes after taking the evening dose of Bactrim. Objective: Vital Signs Temp Pulse Resp BP Pulse Ox 98.7 F 69 18 130/66 H 94 01/29/17 16:00 01/29/17 16:00 01/29/17 16:00 01/29/17 16:00 01/29/17 16:00 Laboratory Results 01/28/17 09:27 01/28/17 09:27 01/28/17 01/29/17 01/30/17 05:59 05:59 05:59 Intake Total 2400 800 Output Total 1800 1300 Balance 600 -500 Lungs clear. Walking better. Pain better. Afebrile ICD10 Worksheet Patient Problems: Problems Problem Status Onset Arthrodesis status Acute Cervical radicular pain Acute Cervical spinal stenosis Acute
[2017-01-30] MEDS: ONDANSETRON DISINTEGRATING 4 MG TAB PO PRN ×2 (00:55→06:22)
[2017-01-30] MEDS: METHOCARBAMOL 750 MG TAB PO SCH ×3 (00:55→12:08)
[2017-01-30] MEDS: HYDROCODONE/APAP 10/325 TAB PO PRN ×3 (00:55→10:05)
[2017-01-30] MEDS: LEVOTHYROXINE 125 MCG TAB PO SCH (06:21)
[2017-01-30] MEDS: FOLIC ACID 1 MG TAB PO SCH (06:23)
[2017-01-30] MEDS ORDERED: methylPREDNISolone SOD SUCC 40 MG/ML VIAL IVP SCH (09:00)
--- NOTE | 2017-01-30 09:08 | NEUSURGPN ---
Date of Surgery: 01/26/17 Post Op Day: 4 Assessment/Plan: Assessment: 61 yo female that is s/p ACDF C3-C6 POD #4 Plan: -pt with some expected neck pain-able to tolerate PO at this time, eating and drinking fine -Optimize pain management-doing well with current pain control plan -pt wants to dc later today pending approval from IM -post op xrays stable hardware placement-reviewed with Pt in room -collar at all times- Recommend hard collar/marilu to shower in/soft collar at 2 weeks at night to sleep -dc pended -PT/OT/ST ordered- Advance diet per speech -call with any questions or concerns -pt understands and agrees Subjective: Awake and alert. NAD. Eating/drinking and voiding. No f/c/n/v/d. No epps/cp/ sob/abd or gu complaints. Objective: AFVSS/PERRLA/EOMI no droop CN 2-12 grossly intact +lt touch 5/5 BUE/BLE = CDI neck soft and supple-no induration Neuro Check Frequency: per routine Urinary Catheter in Place: No Catheter Insertion Date: 01/26/17 - Physician Discussed Patient with DrLoy: [facility] Physical Exam - Vitals, I&O, Labs I and O 01/29/17 01/30/17 01/31/17 05:59 05:59 05:59 Intake Total 800 400 Output Total 1300 1000 Balance -500 -600 Intake: Oral (ml) 400 400 IV Infused (ml) 400 Ns 1,000 ml @ 100 mls/hr 400 IV CONT ASHKAN Rx#: [id number] Output: Urine (ml) 1300 1000 Toilet 1300 1000 Other: Intake Quantity Yes Yes Sufficient Number of Voids Toilet 2 Vital Signs Temp Pulse Resp BP Pulse Ox 37.2 C 71 18 139/69 H 93 01/30/17 00:57 01/30/17 00:57 01/30/17 00:57 01/30/17 00:57 01/30/17 00:57 Laboratory Results 01/28/17 09:27 01/28/17 09:27 ICD10 Worksheet Patient Problems: Problems Problem Status Onset Arthrodesis status Acute Cervical radicular pain Acute Cervical spinal stenosis Acute - ICD10 Problem Qualifiers (1) Cervical spinal stenosis (2) Arthrodesis status (3) Cervical radicular pain
[2017-01-30 09:38] VITALS: BP 130/72; PULSE 79; RESP 16; TEMP 98.6; O2SAT 91
[2017-01-30] MEDS: FERROUS SULFATE 325 MG TAB PO SCH (10:00)
[2017-01-30] MEDS: SENNOSIDES/DOCUSATE SODIUM TAB PO SCH (10:00)
[2017-01-30] MEDS: OMEGA-3 ETHYL EST-LOVAZA 1 GM CAP PO SCH (10:00)
[2017-01-30] MEDS: POLYETHYLENE GLYCOL 3350 17 GM PKT PO PRN (10:04)
[2017-01-30] MEDS: PANTOPRAZOLE SODIUM 40 MG TAB PO SCH (10:05)
[2017-01-30] MEDS: LIOTHYRONINE SODIUM 5 MCG TAB PO SCH (10:05)
[2017-01-30] MEDS: predniSONE 5 MG TAB PO SCH (10:06)
[2017-01-30] MEDS: ENOXAPARIN 40 MG/0.4 ML SYR SC SCH (10:06)
--- NOTE | 2017-01-30 13:02 | SOAPPROG ---
SOAP Progress Note Assessment/Plan: Assessment:Anxiety and pain management issue. Low grade fever last night. Likely has atelectasis causing those symptoms. Probably has some mild Addisonian symptoms. UTI, however culture was negative and symptoms are now gone. Probable allergy to Bactrim Plan: Stop bactrim. Will not use another antibiotic as the UTI concern seems to have cleared and the urine culture is negative. No further use of bactrim. 01/27/17 09:31 01/27/17 19:54 01/28/17 10:52 01/28/17 19:39 01/29/17 23:49 01/30/17 13:00 Subjective: Feeling better. Pain improved. Objective: Vital Signs Temp Pulse Resp BP Pulse Ox 98.6 F 79 16 130/72 H 91 L 01/30/17 09:34 01/30/17 09:34 01/30/17 09:34 01/30/17 09:34 01/30/17 09:34 Microbiology 01/28/17 12:40 Urine Culture - Final Urine,Clean Catch Laboratory Results 01/28/17 09:27 01/28/17 09:27 01/29/17 01/30/17 01/31/17 05:59 05:59 05:59 Intake Total 800 400 Output Total 1300 1000 Balance -500 -600 Lungs clear to asc. COR RRR. Pain controlled. Alert and appropriate. ICD10 Worksheet Patient Problems: Problems Problem Status Onset Arthrodesis status Acute Cervical radicular pain Acute Cervical spinal stenosis Acute
[2017-01-31] MEDS ORDERED: VITAMIN K2 PO SCH (09:00)
[2017-01-31] MEDS ORDERED: MULTIVITAMINS 1 EACH TAB PO SCH (09:00)
[2017-01-31] MEDS ORDERED: ASCORBIC ACID 250 MG TAB PO SCH (09:00)
[2017-01-31] MEDS ORDERED: Herbals/Supplements -Info Only PO SCH (09:00)
[2017-01-31] MEDS ORDERED: ASCORBIC ACID PO SCH (09:00)
[2017-02-01] MEDS ORDERED: CHOLECALCIFEROL 5000 UNIT PO SCH (09:00)
[2017-02-01] MEDS ORDERED: CHOLECALCIFEROL VIT D3 1,000 UNITS TAB PO SCH (09:00)
== END 2017-01-30 14:18 | disposition home or self-care (01) | DRG 472 ==
LOC: F3N 01-26 10:37
PROVIDERS: ADMIT Neurological Surgery; ATTEND Neurological Surgery
DX: M48.02 Spinal stenosis, cervical region (principal); J98.11 Atelectasis; M50.11 Cervical disc disorder with radiculopathy, high cervical region; M50.121 Cervical disc disorder at C4-C5 level with radiculopathy; M50.122 Cervical disc disorder at C5-C6 level with radiculopathy; M50.123 Cervical disc disorder at C6-C7 level with radiculopathy; F41.1 Generalized anxiety disorder; R50.9 Fever, unspecified; T37.0X5A Adverse effect of sulfonamides, initial encounter; L27.1 Localized skin eruption due to drugs and medicaments taken internally; E03.9 Hypothyroidism, unspecified
CPT/HCPCS: 92526-GN; 92610-GN; 97116-GP; 97162-GP; 97165-GO; 97535-GO; C1713; J0690; J1170; J1650; J1885; J2060; J2250; J2270; J2370; J2405; J2704; J3010

== ENCOUNTER → 2017-03-27 | Outpatient (CLI) | payer OTHER | LOC: FIMAGING 15:51 | PROVIDERS: ATTEND Nurse Practitioner | DX: M47.12 Other spondylosis with myelopathy, cervical region (principal); Z98.1 Arthrodesis status ==

== ENCOUNTER → 2017-05-15 | Outpatient (CLI) | payer OTHER | LOC: FIMAGING 13:43 | PROVIDERS: ATTEND Neurological Surgery | DX: Z09 Encounter for follow-up examination after completed treatment for conditions other than malignant neoplasm (principal); Z98.1 Arthrodesis status; M50.323 Other cervical disc degeneration at C6-C7 level; M51.34 Other intervertebral disc degeneration, thoracic region ==

== ENCOUNTER → 2017-07-18 | Outpatient (CLI) | payer OTHER | LOC: FIMAGING 13:10 → EDSTATUS 13:11 | PROVIDERS: ATTEND Neurological Surgery | DX: Z98.1 Arthrodesis status (principal) ==

== ENCOUNTER 2017-08-15 10:34 | Observation (INO) | payer OTHER ==
--- NOTE | 2017-08-15 10:53 | EDPHY ---
H & P Stated Complaint: gen abd pain nausea since woke up this am Time Seen by Provider: 08/15/17 10:53 - Personal History Current Tetanus/Diphtheria Vaccine: Unsure Current Tetanus Diphtheria and Acellular Pertussis (TDAP): Unsure Tetanus Vaccine Date: last 10 years - Medical/Surgical History Hx Asthma: No Hx Chronic Respiratory Disease: No Hx Diabetes: No Hx Cardiac Disease: No Hx Renal Disease: No Hx Cirrhosis: No Hx Alcoholism: No Hx HIV/AIDS: No Hx Splenectomy or Spleen Trauma: No Other PMH: Lupus, gallbladder removed, appy, hysterectomy, hypothyroid, Pancreatitis, dicerticcerc fusion - Social History Smoking Status: Never smoked Constitutional: Initial Vital Signs Temperature (C) 36.4 C 08/15/17 10:40 Heart Rate 75 08/15/17 10:40 Respiratory Rate 22 H 08/15/17 10:40 Blood Pressure 123/74 H 08/15/17 10:40 O2 Sat (%) 100 08/15/17 10:40 O2 Delivery Mode Room Air Allergies/Adverse Reactions: Sulfa (Sulfonamide Antibiotics) Allergy (Verified 01/30/17 13:02) Home Medications: Medication Instructions Recorded Folic Acid [Folic Acid 1 MG (*)] 3 mg PO DAILY06 12/30/11 Ascorbic Acid [Vitamin C] 200 mg PO DAILY 12/21/16 Cholecalciferol (Vitamin D3) 5,000 unit PO EVERY OTHER DAY 12/21/16 [Vitajoy Daily D] Cholecalciferol (Vitamin D3) 7,500 unit PO EVERY OTHER DAY 12/21/16 [Vitajoy Daily D] Estradiol [Vivelle-Dot 0.0375MG 0.0375 mg TD TuFr@0800 12/21/16 (*)] Ferrous Sulfate [Iron] 325 mg PO DAILY 12/21/16 Herbals/Supplements -Info Only 1 ea PO DAILY 12/21/16 Levothyroxine [Synthroid 125 mcg 125 mcg PO DAILY06 12/21/16 (*)] Liothyronine Sodium [Cytomel 5 mcg 5 mcg PO DAILY 12/21/16 (*)] Multivitamins [Multivitamin (*)] 1 each PO DAILY 12/21/16 [place]-3 Ethyl Est-Lovaza [Lovaza 1 4 gm PO DAILY 12/21/16 gm (*)] Vitamin K2 90 mcg PO DAILY 12/21/16 predniSONE [Prednisone] 5 mg PO DAILY 12/21/16 Estradiol [VAGIFEM] 10 mcg VG Q3D 12/27/16 HYDROcodone/APAP 10325 [[place] 1 - 2 tab PO Q4H PRN #90 tab 01/30/17 10/325 (*)] Methocarbamol [Robaxin 750 mg (*)] 750 mg PO QID #60 tab 01/30/17 Ondansetron Odt [Zofran Odt 4 mg 4 mg PO Q4HRS PRN #20 tab 01/30/17 (*)] Sennosides/Docusate Sodium 1 - 2 tab PO BID #30 tab 01/30/17 [Senokot-S] Sodium Cl Nasal Gel [[place] Saline 1 [place] TP PRN PRN #0 gel 01/30/17 Nasal Gel] Medical Decision Making - Diagnostics Imaging Results: Imaging Impressions Abdomen CT 08/15/17 11:12 Impression: 1. Low grade partial small bowel obstruction in the mid ileum versus less likely adynamic ileus. 2. No abscess or evidence of bowel perforation. 3. Diverticulosis of the sigmoid and, to a lesser degree, ascending and descending colon. No acute diverticulitis. 4. New mild biliary dilation may be due to postcholecystectomy state. No evidence of common bile duct stone. Findings discussed with Emergency Department physician, Dr. Bhavesh Gamez on August 15, 2017 at 1220 hours. Imaging: Discussed imaging studies w/ agriculture mechanic Radiologist, I viewed and interpreted images myself ED Course/Re-evaluation: CHIEF COMPLAINT: Abdominal pain HISTORY OF PRESENT ILLNESS: The patient is a 62 y/o female with GI disease and abdominal surgery history arriving from her PCP's office with severe, diffuse abdominal pain that woke her from sleep around 07:30, about 3.5 hours ago. Her medical history includes non-alcoholic pancreatitis, lupus, prior GI bleed, diverticulitis, and multiple bowel obstructions. She had associated nausea, but no vomiting. No recent trauma or illness, fever, diarrhea, cough. Her pain has improved with initial dose of Dilaudid here, but is still rated at 7/10 in severity. She has a history of multiple abdominal surgeries including cholecystectomy, appendectomy, total hysterectomy, and exploratory laparotomy for peritonitis. REVIEW OF SYSTEMS: A 10 point review of systems was performed and is negative with the exception of the elements mentioned in the history of present illness. PHYSICAL EXAM: HR, BP, O2 Sat, RR. Temp noted General Appearance: Alert, well hydrated, appropriate, and non-toxic appearing. Head: Atraumatic without scalp tenderness or obvious injury Eyes: Pupils equal, round, reactive to light and accommodation, EOMI, no trauma , no injection. Nose: Atraumatic, no rhinorrhea, clear. Throat: Mucus membranes moist. Neck: Supple, nontender, no lymphadenopathy. Respiratory: No retractions, no distress, no wheezes, and no accessory muscle use. Lungs are clear to auscultation bilaterally. Cardiovascular: Regular rate and rhythm, no murmurs, rubs, or gallops. Good capillary refill all extremities. Gastrointestinal: Abdomen is soft, diffuse tenderness with peritoneal signs, non-distended, no masses, no rebound, no guarding. Musculoskeletal: Normal active ROM of all extremities, atraumatic. Neurological: Alert, appropriate, and interactive. The patient has non-focal cranial nerves, motor, sensory, and cerebellar exam. Skin: No rashes, good turgor, no nodules on palpation. Past medical history:Lupus, hypothyroidism, non-alcoholic pancreatitis, diverticulitis, GI bleed, multiple bowel obstructions Past surgical history: Cholecystectomy, appendectomy, hysterectomy, spinal fusions Family history: Noncontributory Social history: PCP: Dr. Servin. Accompanied by Dr. Servin's scribe/MA. DIAGNOSTICS/PROCEDURES/CRITICAL CARE TIME: Abdominal CT: Possible small early SBO, constipation DIFFERENTIAL DIAGNOSIS: The differential diagnosis for the patient's abdominal pain included but was not limited to ovarian cyst, pelvic inflammatory disease, ovarian torsion, urinary tract infection, ectopic , cholecystitis, and appendicitis. MEDICAL DECISION MAKING: This is a 62 y/o female with lupus and significant GI and abdominal surgery history who presents with a 3.5-hour history of acute onset diffuse abdominal pain. She is quite tender with peritoneal signs on exam. Plan for IV, labs, symptom management, and abdominal CT. 0.5mg IV Dilaudid, 30mg IV Toradol, 4mg IV Zofran, 1L IV NS. Labs normal. 1200: Consulted with Dr. Servin, patient's PCP. He would like 10mg IV Solumedrol administered. I confirmed the small dose and ordered this at his request. 1220: CT shows possible early SBO and constipation. Consulted again with Dr. Servin. He will admit patient. - Data Points Laboratory Results: Laboratory Results 08/15/17 10:50 08/15/17 10:50 08/15/17 08/15/17 08/15/17 10:50 10:50 10:50 WBC 6.58 10^3/uL 10^3/uL (3.80-9.50) RBC 4.02 10^6/uL L 10^6/uL (4.18-5.33) Hgb 13.1 g/dL g/dL (12.6-16.3) Hct 39.2 % % (38.0-47.0) MCV 97.5 fL fL (81.5-99.8) MCH 32.6 pg pg (27.9-34.1) MCHC 33.4 g/dL g/dL (32.4-36.7) RDW 13.2 % % (11.5-15.2) Plt Count 275 10^3/uL 10^3/uL (150-400) MPV 9.2 fL fL (8.7-11.7) Neut % (Auto) 55.7 % % (39.3-74.2) Lymph % (Auto) 32.1 % % (15.0-45.0) [place] % (Auto) 10.9 % % (4.5-13.0) Eos % (Auto) 0.6 % % (0.6-7.6) Baso % (Auto) 0.5 % % (0.3-1.7) Nucleat RBC Rel Count 0.0 % % (0.0-0.2) Absolute Neuts (auto) 3.67 10^3/uL 10^3/uL (1.70-6.50) Absolute Lymphs (auto) 2.11 10^3/uL 10^3/uL (1.00-3.00) Absolute Monos (auto) 0.72 10^3/uL 10^3/uL (0.30-0.80) Absolute Eos (auto) 0.04 10^3/uL 10^3/uL (0.03-0.40) Absolute Basos (auto) 0.03 10^3/uL 10^3/uL (0.02-0.10) Absolute Nucleated RBC 0.00 10^3/uL 10^3/uL (0-0.01) Immature Gran % 0.2 % % (0.0-1.1) Immature Gran # 0.01 10^3/uL 10^3/uL (0.00-0.10) PT 12.8 SEC SEC (12.0-15.0) INR 0.94 (0.83-1.16) APTT 27.5 SEC SEC (23.0-38.0) Sodium 142 mEq/L mEq/L (135-145) Potassium 3.5 mEq/L mEq/L (3.5-5.2) Chloride 105 mEq/L mEq/L (97-110) Carbon Dioxide 23 mEq/l mEq/l (22-31) Anion Gap 14 mEq/L mEq/L (8-16) BUN 13 mg/dL mg/dL (7-23) Creatinine 0.8 mg/dL mg/dL (0.6-1.0) Estimated GFR > 60 Glucose 100 mg/dL mg/dL (70-100) Calcium 9.9 mg/dL mg/dL (8.5-10.4) Total Bilirubin 0.5 mg/dL mg/dL (0.1-1.4) Conjugated Bilirubin 0.2 mg/dL mg/dL (0.0-0.5) Unconjugated Bilirubin 0.3 mg/dL mg/dL (0.0-1.1) AST 24 IU/L IU/L (14-46) ALT 31 IU/L IU/L (9-52) Alkaline Phosphatase 60 IU/L IU/L (38-126) Total Protein 7.4 g/dL g/dL (6.3-8.2) Albumin 4.3 g/dL g/dL (3.5-5.0) Lipase 161 IU/L IU/L (23-300) Medications Given: Discontinued Medications Hydromorphone HCl (Dilaudid) 0.5 mg IVP EDNOW ONE Stop: 08/15/17 10:58 Last Admin: 08/15/17 10:59 Dose: 0.5 mg Hydromorphone HCl (Dilaudid) 0.5 mg IVP EDNOW ONE Stop: 08/15/17 11:13 Last Admin: 08/15/17 11:21 Dose: 0.5 mg Sodium Chloride (Ns) 1,000 mls @ 3,000 mls/hr IV ONCE ONE Stop: 08/15/17 11:16 Last Admin: 08/15/17 11:01 Dose: 1,000 mls Sodium Chloride (Ns) 1,000 mls @ 0 mls/hr IV EDNOW ONE; Wide Open PRN Reason: Protocol Stop: 08/15/17 11:13 Last Admin: 08/15/17 12:52 Dose: 1,000 mls Ketorolac Tromethamine (Toradol) 30 mg IVP EDNOW ONE Stop: 08/15/17 11:13 Last Admin: 08/15/17 11:20 Dose: 30 mg Methylprednisolone Sodium Succinate (Solu-Medrol) 10 mg IVP EDNOW ONE Stop: 08/15/17 12:07 Last Admin: 08/15/17 12:52 Dose: 10 mg Ondansetron HCl (Zofran) 4 mg IVP EDNOW ONE Stop: 08/15/17 10:58 Last Admin: 08/15/17 11:01 Dose: 4 mg Departure - Departure Disposition: [facility] Inpatient Acute Clinical Impression: Small bowel obstruction Constipation Qualifiers: Constipation type: other constipation type Qualified Code(s): K59.09 - Other constipation Condition: Fair Referrals: Thompson Servin MD [Primary Care Provider] - As per Instructions Report Scribed for: Bhavesh Gamez Report Scribed by: Liza Cain Date of Report: 08/15/17 Time of Report: 12:04
[2017-08-15] MEDS ORDERED: ONDANSETRON 4 MG/2 ML VIAL ONE (10:54)
[2017-08-15] MEDS ORDERED: HYDROmorphONE/DILAUDID 1 MG/ML INJ ONE (10:54)
[2017-08-15] MEDS ORDERED: NS 1,000 ML IV ONE ×2 (10:57→11:12)
[2017-08-15] MEDS ORDERED: ONDANSETRON 4 MG/2 ML VIAL IVP ONE (10:57)
[2017-08-15] MEDS ORDERED: HYDROmorphONE/DILAUDID 1 MG/ML INJ IVP ONE ×2 (10:57→11:12)
[2017-08-15] MEDS ORDERED: KETOROLAC 30 MG/1 ML SDV IVP ONE (11:12)
[2017-08-15 11:18] LABS: PLATELET COUNT 275 10^3/uL (150-400)
[2017-08-15 11:22] LABS: INR 0.94 (0.83-1.16); PROTIME(PATIENT) 12.8 SEC (12.0-15.0)
[2017-08-15] MEDS ORDERED: IOPAMIDOL (ISOVUE-300) 100 ML BTL ONE (11:30)
[2017-08-15] MEDS ORDERED: methylPREDNISolone SOD SUCC 125 MG/2 ML VIAL IVP ONE (12:06)
[2017-08-15] MEDS ORDERED: ONDANSETRON 4 MG/2 ML VIAL IVP PRN (14:14)
[2017-08-15] MEDS ORDERED: POLYETHYLENE GLYCOL 3350 17 GM PKT PO ONE (14:15)
[2017-08-15] MEDS ORDERED: D5W 1/2 NS W/ 20 KCl/L 1,000 ML IV SCH (14:15)
[2017-08-15 14:29] VITALS: RESP 16; O2SAT 95
[2017-08-15 15:33] VITALS: BP 117/57; PULSE 69; TEMP 98.4
[2017-08-15] MEDS ORDERED: LEVOTHYROXINE 125 MCG TAB PO SCH (17:15)
[2017-08-15] MEDS ORDERED: LIOTHYRONINE SODIUM 5 MCG TAB PO SCH (17:15)
--- NOTE | 2017-08-15 18:18 | SOAPPROG ---
SOAP Progress Note Assessment/Plan: Assessment:Abd pain resolving. Plan:DC to home. Follow up with me over the next few days. 08/15/17 18:17 Subjective: doiing much better. Abdominal discomfort much improved. Objective: Vital Signs Temp Pulse Resp BP Pulse Ox 98.4 F 69 16 117/57 L 95 08/15/17 15:29 08/15/17 15:29 08/15/17 15:29 08/15/17 15:29 08/15/17 15:29 08/14/17 08/15/17 08/16/17 05:59 05:59 05:59 Intake Total 1999 Balance 1999 PT 12.8 SEC (12.0-15.0) 08/15/17 10:50 INR 0.94 (0.83-1.16) 08/15/17 10:50 Vitals are normal. Pain is much better. Tenderness resolved. Bowel sounds good. COR RRR. ICD10 Worksheet Patient Problems: Problems Problem Status Onset Constipation Acute Small bowel obstruction Acute Arthrodesis status Acute Cervical radicular pain Acute Cervical spinal stenosis Acute
--- NOTE | 2017-08-15 18:34 | GHP ---
[f rep st] HISTORY AND PHYSICAL DATE OF ADMISSION: 08/15/2017 Observation Note REASON FOR ADMISSION: Evaluation of abdominal pain. HOSPITAL COURSE: Patient was admitted with severe abdominal pain. It began suddenly this morning. Blood work was unremarkable, including CBC, CMP, and lipase. CT of the abdomen was performed, which shows no evidence of diverticulitis, no appendicitis, no pancreatitis. She does have some increased fluid in the small bowel and increased stool in the large bowel. Concern for partial incomplete angelina y small-bowel obstruction versus constipation versus impending ileus. Patient was admitted to observation. She was given Dilaudid and 10 mg of Solu-Medrol to make up for her normal steroid dose. The pain resolved with the Dilaudid and has not returned. Seven hours late r, she has mild pain, but no guarding, no tenderness and bowel sounds are normal. IMPRESSION: Abdominal pain of uncertain etiology. Possibly related to small bowel obstruction versu s constipation versus ileus. PLAN: Will discharge to home. Will follow closely as an outpatient. If the symptoms return, she ca n return to the emergency room for re-evaluation. /[id number]/MODL
[2017-08-15] MEDS ORDERED: POLYETHYLENE GLYCOL 3350 17 GM PKT PO SCH (22:00)
[2017-08-16] MEDS ORDERED: ESTRADIOL VIVELLE 0.0375 MG PATCH TD SCH (08:00)
[2017-08-16] MEDS ORDERED: predniSONE 5 MG TAB PO SCH (09:00)
[2017-08-16] MEDS ORDERED: OMEGA-3 ETHYL EST-LOVAZA 1 GM CAP PO SCH (09:00)
[2017-08-18] MEDS ORDERED: Estradiol [Vagifem] 10 MCG VG SCH (08:00)
== END 2017-08-15 19:02 | disposition home or self-care (01) ==
LOC: F3E 14:58
PROVIDERS: ADMIT Internal Medicine; ATTEND Internal Medicine
DX: K56.600 Partial intestinal obstruction, unspecified as to cause (principal); K59.00 Constipation, unspecified; K56.0 Paralytic ileus; K57.30 Diverticulosis of large intestine without perforation or abscess without bleeding; K83.8 Other specified diseases of biliary tract
CPT/HCPCS: 74177; G0378; 96374; J1170; J1885; J2405; J2930; Q9967

== ENCOUNTER 2017-08-15 21:05 | Inpatient (IN) | payer OTHER ==
[2017-08-15] MEDS ORDERED: NS 1,000 ML IV ONE (21:18)
[2017-08-15] MEDS ORDERED: ONDANSETRON 4 MG/2 ML VIAL IVP ONE (21:18)
[2017-08-15] MEDS ORDERED: HYDROmorphONE/DILAUDID 1 MG/ML INJ IVP ONE (21:18)
--- NOTE | 2017-08-15 21:27 | EDPHY ---
H & P Time Seen by Provider: 08/15/17 21:12 HPI/ROS: Chief complaint: Abdominal pain History of present illness: This is a 62-year-old female who presents to the emergency department with EMS for evaluation of abdominal pain. She has associated nausea and vomiting. She was seen this morning in this emergency department for the same. CT scan was concerning for a partial small-bowel obstruction versus an ileus at that time. She was admitted for a few hours and symptomatically treated with improvement in symptoms. Ultimately she was discharged home to treat symptomatically. However, upon getting home her symptoms have significantly worsened. Pain persists. Nausea has worsened. She has now started to vomit, which is new. No blood noted in the vomit. She denies other associated signs or symptoms including no fevers, no diarrhea or constipation, no urinary symptoms. Review of systems: A 10 point review of systems was obtained and other than described above was negative - Personal History Tetanus Vaccine Date: last 10 years - Medical/Surgical History Hx Asthma: No Hx Chronic Respiratory Disease: No Hx Diabetes: No Hx Cardiac Disease: No Hx Renal Disease: No Hx Cirrhosis: No Hx Alcoholism: No Hx HIV/AIDS: No Hx Splenectomy or Spleen Trauma: No Other PMH: Lupus, gallbladder removed, appy, hysterectomy, hypothyroid, Pancreatitis, dicerticcerc fusion - Social History Smoking Status: Never smoked - Physical Exam Exam: General Appearance: Alert, nontoxic. Eyes: Pupils equal and round no pallor or injection. ENT, Mouth: Mucous membranes moist. Respiratory: There are no retractions, lungs are clear to auscultation. Cardiovascular: Regular rate and rhythm. Gastrointestinal: Bowel sounds are present. Abdomen is soft and nondistended. Mild tenderness. No peritoneal signs. Neurological: Alert and oriented x4. Strength and sensation intact and symmetrical. Skin: Warm and dry, no rashes. Musculoskeletal: Neck is supple non tender. Extremities are symmetrical, full range of motion. Psychiatric: Patient is oriented X 3, there is no agitation. Constitutional: Initial Vital Signs Temperature (C) 36.8 C 08/15/17 21:05 Heart Rate 68 08/15/17 21:05 Respiratory Rate 18 08/15/17 21:05 Blood Pressure 143/75 H 08/15/17 21:05 O2 Sat (%) 98 08/15/17 21:05 O2 Delivery Mode Room Air Allergies/Adverse Reactions: Sulfa (Sulfonamide Antibiotics) Allergy (Verified 01/30/17 13:02) Home Medications: Medication Instructions Recorded Estradiol [Vivelle-Dot 0.0375MG 0.0375 mg TD TuFr@0800 12/21/16 (*)] Levothyroxine [Synthroid 125 mcg 125 mcg PO DAILY06 12/21/16 (*)] Liothyronine Sodium [Cytomel 5 mcg 5 mcg PO DAILY 12/21/16 (*)] [place]itus-3 Ethyl Est-Lovaza [Lovaza 1 4 gm PO DAILY 12/21/16 gm (*)] predniSONE [Prednisone] 5 mg PO DAILY 12/21/16 Estradiol [VAGIFEM] 10 mcg VG Q3D 12/27/16 Polyethylene Glycol 3350 [Miralax 17 gm PO TID pkt 08/15/17 17 gm (*)] Medical Decision Making - Diagnostics Imaging: I viewed and interpreted images myself ED Course/Re-evaluation: Patient is discussed with my secondary supervising physician Dr. Aj Martinez. Patient returns to the emergency department for abdominal pain with nausea and vomiting after being discharged earlier today. Ultimately she has worsening of symptoms not responsive to home therapy. She will be admitted to Dr. Servin for further care. The plan has been discussed with the patient who voiced understanding and agreement with it. Differential Diagnosis: Included but not limited to bowel obstruction, ileus, gastritis, gastroenteritis , biliary tract disease, pancreatitis, colitis - Data Points Laboratory Results: Laboratory Results 08/15/17 21:10 08/15/17 21:10 08/15/17 08/15/17 21:10 21:10 WBC 5.01 10^3/uL 10^3/uL (3.80-9.50) RBC 4.06 10^6/uL L 10^6/uL (4.18-5.33) Hgb 13.2 g/dL g/dL (12.6-16.3) Hct 39.2 % % (38.0-47.0) MCV 96.6 fL fL (81.5-99.8) MCH 32.5 pg pg (27.9-34.1) MCHC 33.7 g/dL g/dL (32.4-36.7) RDW 13.4 % % (11.5-15.2) Plt Count 302 10^3/uL 10^3/uL (150-400) MPV 9.2 fL fL (8.7-11.7) Neut % (Auto) 73.6 % % (39.3-74.2) Lymph % (Auto) 20.8 % % (15.0-45.0) [place] % (Auto) 5.2 % % (4.5-13.0) Eos % (Auto) 0.0 % L % (0.6-7.6) Baso % (Auto) 0.2 % L % (0.3-1.7) Nucleat RBC Rel Count 0.0 % % (0.0-0.2) Absolute Neuts (auto) 3.69 10^3/uL 10^3/uL (1.70-6.50) Absolute Lymphs (auto) 1.04 10^3/uL 10^3/uL (1.00-3.00) Absolute Monos (auto) 0.26 10^3/uL L 10^3/uL (0.30-0.80) Absolute Eos (auto) 0.00 10^3/uL L 10^3/uL (0.03-0.40) Absolute Basos (auto) 0.01 10^3/uL L 10^3/uL (0.02-0.10) Absolute Nucleated RBC 0.00 10^3/uL 10^3/uL (0-0.01) Immature Gran % 0.2 % % (0.0-1.1) Immature Gran # 0.01 10^3/uL 10^3/uL (0.00-0.10) Sodium 141 mEq/L mEq/L (135-145) Potassium 4.4 mEq/L mEq/L (3.5-5.2) Chloride 104 mEq/L mEq/L (97-110) Carbon Dioxide 20 mEq/l L mEq/l (22-31) Anion Gap 17 mEq/L H mEq/L (8-16) BUN 8 mg/dL mg/dL (7-23) Creatinine 0.7 mg/dL mg/dL (0.6-1.0) Estimated GFR > 60 Glucose 105 mg/dL H mg/dL (70-100) Calcium 10.0 mg/dL mg/dL (8.5-10.4) Total Bilirubin 0.8 mg/dL D mg/dL (0.1-1.4) Conjugated Bilirubin 0.2 mg/dL mg/dL (0.0-0.5) Unconjugated Bilirubin 0.6 mg/dL mg/dL (0.0-1.1) AST 27 IU/L IU/L (14-46) ALT 32 IU/L IU/L (9-52) Alkaline Phosphatase 76 IU/L IU/L (38-126) Total Protein 7.9 g/dL g/dL (6.3-8.2) Albumin 4.7 g/dL g/dL (3.5-5.0) Lipase 132 IU/L IU/L (23-300) Medications Given: Discontinued Medications Hydromorphone HCl (Dilaudid) 0.5 mg IVP EDNOW ONE Stop: 08/15/17 21:19 Last Admin: 08/15/17 21:37 Dose: 1 mg Sodium Chloride (Ns) 1,000 mls @ 0 mls/hr IV EDNOW ONE; Wide Open PRN Reason: Protocol Stop: 08/15/17 21:19 Last Admin: 08/15/17 21:37 Dose: 1,000 mls Ondansetron HCl (Zofran) 4 mg IVP EDNOW ONE Stop: 08/15/17 21:19 Last Admin: 08/15/17 21:37 Dose: 4 mg Departure - Departure Disposition: [facility] Inpatient Acute Clinical Impression: Abdominal pain Qualifiers: Abdominal location: generalized Qualified Code(s): R10.84 - Generalized abdominal pain Condition: Fair
[2017-08-15 21:28] LABS: PLATELET COUNT 302 10^3/uL (150-400)
[2017-08-15] MEDS ORDERED: HYDROmorphONE/DILAUDID 1 MG/ML INJ IVP PRN (22:13)
[2017-08-15] MEDS ORDERED: D5W 1/2 NS W/ 20 KCl/L 1,000 ML IV SCH (22:15)
[2017-08-15] MEDS ORDERED: PROMETHAZINE HCL 25 MG/ML INJ IVP ONE (22:35)
--- NOTE | 2017-08-15 22:45 | GHP ---
[f rep st] HISTORY AND PHYSICAL DATE OF ADMISSION: 08/15/2017 REASON FOR ADMISSION: Abdominal pain, nausea, vomiting, small-bowel obstruction. HISTORY OF PRESENT ILLNESS: The patient is a 62-year-old female who had been admitted to Observation earlier in the day, was observed and discharged as her pain resolved. However, upon return home, th e nausea and recurrent pain returned and she thew up. She presents to the emergency room for repeat evaluation. In the emergency room, a CBC was performed which was normal. A KUB was performed which shows some ai r fluid levels but not an excessive amount of gas in the abdomen. No major concern about small-bowel obstruction. She is being admitted because of some ongoing pain and concerns of having current symp toms overnight. PAST MEDICAL HISTORY: Significant for lupus, previous pancreatitis, status post gallbladder surgery, status post hysterectomy, breast augmentation. REVIEW OF SYSTEMS: As pertinent to the present illness, she was doing well until this morning when s he awakened with the discomfort. PHYSICAL EXAMINATION: GENERAL: A pleasant 62-year-old female, in no obvious distress. She does hav e complaint of abdominal pain. HEENT: Pupils are equal and reactive. LUNGS: Clear. HEART: Regul ar rate and rhythm without murmur. ABDOMEN: Bowel sounds were present. She has mild diffuse abdomi nal tenderness without focal tenderness, guarding or rebound. She has no peripheral edema. IMPRESSION: Recurrent abdominal pain with nausea and vomiting. CT scan this morning suggestive of a n early partial small-bowel obstruction. PLAN: We will admit, place on n.p.o., put on IV fluids and follow closely for worsening or improveme nt of her symptoms. /[id number]/MODL
[2017-08-15] MEDS: PANTOPRAZOLE SODIUM 40 MG VIAL IVP SCH (22:48)
[2017-08-16] MEDS: ONDANSETRON 4 MG/2 ML VIAL IVP SCH ×7 (00:14→22:26)
[2017-08-16] MEDS ORDERED: LORazepam 0.5 MG TAB PO PRN (01:41)
[2017-08-16] MEDS ORDERED: KETOROLAC 30 MG/1 ML SDV IVP ONE ×2 (01:41→19:37)
[2017-08-16] MEDS ORDERED: LORazepam 2 MG/ML INJ ONE (01:49)
[2017-08-16] MEDS ORDERED: methylPREDNISolone SOD SUCC 40 MG/ML VIAL IVP ONE (01:57)
[2017-08-16] MEDS ORDERED: KETOROLAC 30 MG/1 ML SDV ONE (02:01)
[2017-08-16] MEDS ORDERED: methylPREDNISolone SOD SUCC 40 MG/ML VIAL ONE (02:01)
[2017-08-16] MEDS: LORazepam 2 MG/ML INJ IVP PRN ×2 (03:31→22:43)
[2017-08-16] MEDS ORDERED: QUETIAPINE FUMARATE PO PRN ×2 (09:01→09:20)
--- NOTE | 2017-08-16 09:04 | SOAPPROG ---
SOAP Progress Note Assessment/Plan: Assessment: Incomplete SBO vs regional ileus. Plan: Slowly advance diet. Re-evaluate in morning. Give toradol for abdominal soreness now. 08/16/17 19:40 Subjective: Had a lot of nausea last night. Feeling better this morning. Nausea gone however still feels ill. No BM or rectal gas. No nausea during the day. Feeling anxious about eating. Objective: Vital Signs Temp Pulse Resp BP Pulse Ox 98.6 F 68 16 116/68 98 08/16/17 08:00 08/16/17 08:00 08/16/17 08:00 08/16/17 08:00 08/16/17 08:00 08/15/17 08/16/17 08/17/17 05:59 05:59 05:59 Output Total 650 Balance -650 Bowel sounds are normal. Had a small amount of gas today. KUB is not remarkable. ICD10 Worksheet Patient Problems: Problems Problem Status Onset Abdominal pain Acute Arthrodesis status Acute Cervical radicular pain Acute Cervical spinal stenosis Acute Constipation Acute Small bowel obstruction Acute
[2017-08-16] MEDS ORDERED: LEVOTHYROXINE 125 MCG PO SCH (09:15)
[2017-08-16] MEDS ORDERED: LIOTHYRONINE SODIUM 5 MCG PO SCH (09:15)
[2017-08-16] MEDS: methylPREDNISolone SOD SUCC 40 MG/ML VIAL IVP SCH ×2 (10:16→20:30)
[2017-08-16] MEDS: PANTOPRAZOLE SODIUM 40 MG VIAL IVP SCH ×2 (10:16→20:29)
--- NOTE | 2017-08-16 10:38 | ASMTCASEMG ---
Living Arrangements What is your living Answers: Alone arrangement? Who do you live with? Type Of Residence What kind of residence do Answers: House you live in? Discharge Plan Comments Coordination Status Comments Notes: Pt is a 62 y/o female admitted for a small bowel obstruction. Pt may need surgical intervention. Pt will most likely not have any d/c needs. No therapies ordered at this time. CM available for changes. Plan: Independent Date Signed: 08/16/2017 10:38 AM Electronically Signed By:TANYA Lucio
[2017-08-16 23:14] VITALS: RESP 16
[2017-08-17 04:53] VITALS: TEMP 98.2
[2017-08-17] MEDS: ONDANSETRON 4 MG/2 ML VIAL IVP SCH ×2 (05:06→09:49)
[2017-08-17] MEDS ORDERED: LEVOTHYROXINE 125 MCG PO SCH (06:00)
[2017-08-17 08:18] VITALS: BP 129/91; PULSE 60; O2SAT 94
[2017-08-17] MEDS ORDERED: LIOTHYRONINE SODIUM 5 MCG PO SCH (09:00)
[2017-08-17] MEDS ORDERED: PANTOPRAZOLE SODIUM 40 MG TAB PO SCH (09:00)
[2017-08-17] MEDS ORDERED: POLYETHYLENE GLYCOL 3350 17 GM PKT PO SCH (09:00)
[2017-08-17] MEDS ORDERED: predniSONE 10 MG TAB PO SCH (18:00)
--- NOTE | 2017-08-17 20:30 | GDS ---
[f rep st] DISCHARGE SUMMARY ADMISSION DIAGNOSIS: Abdominal pain, nausea and vomiting. Possible early small bowel obstruction. DISCHARGE DIAGNOSIS: Abdominal pain, nausea and vomiting. Possible early small bowel obstruction. PROCEDURES: 1. Close clinical observation. 2. IV pain medications. 3. IV Toradol. 4. IV pantoprazole. COMPLICATIONS: None. HOSPITAL COURSE: Patient admitted, after she had been previously observed the same day with symptoms that had resolved. She was seen in the emergency room that morning, had a CT scan which showed ques tion of early small-bowel obstruction versus focal ileus. In the hospital, symptoms completely resol edwar, by that afternoon she was felt to be stable and sent home. However, that evening she developed abdominal pain, nausea, and vomiting again. After feeling progressively worse at home, she presented to the emergency room where she was readmitted. A KUB at that time did not show anything particular ly scary. The symptoms got better with IV fluids, IV Toradol, and a dose of steroid. She was held n .p.o., given IV fluids. Her symptoms substantially improved. On the day of discharge, she ate break fast 2 hours after breakfast she still felt fine, felt no nausea, only trivial abdominal discomfort p robably musculoskeletal related to throwing up and she is being discharged home. DISCHARGE MEDICATIONS: Prednisone 10 mg twice daily for a day, 10 mg once a day for a day, 7.5 mg fo r a day, 7 for a day, 6 for a day, 5 for a day then continue on 5 mg daily. She will take Prilosec 2 0 mg daily, MiraLAX 17 g daily. FOLLOW UP: She will follow up in the office in a week. She will follow up sooner if she has any rec urrence of symptoms. /[id number]/MODL
== END 2017-08-17 14:23 | disposition home or self-care (01) | DRG 390 ==
LOC: EDUNIT# → F3E 23:50
PROVIDERS: ADMIT Internal Medicine; ATTEND Internal Medicine
DX: K56.600 Partial intestinal obstruction, unspecified as to cause (principal); L93.0 Discoid lupus erythematosus; E03.9 Hypothyroidism, unspecified
CPT/HCPCS: 96374; J1170; J1885; J2060; J2405; J2550; J2920

== ENCOUNTER → 2017-09-27 | Outpatient (CLI) | payer OTHER | LOC: FIMAGING 15:11 | PROVIDERS: ATTEND Internal Medicine | DX: M79.671 Pain in right foot (principal) ==

== ENCOUNTER → 2017-10-10 | Outpatient (CLI) | payer OTHER | LOC: FIMAGING 17:54 | PROVIDERS: ATTEND Internal Medicine | DX: S92.511A Displaced fracture of proximal phalanx of right lesser toe(s), initial encounter for closed fracture (principal) ==

== ENCOUNTER → 2018-03-08 | Outpatient (CLI) | payer OTHER | LOC: FIMAGING 17:49 | PROVIDERS: ATTEND Internal Medicine | DX: R10.9 Unspecified abdominal pain (principal) ==

== ENCOUNTER → 2018-03-27 | Outpatient (CLI) | payer OTHER | LOC: FIMAGING 14:08 | PROVIDERS: ATTEND Neurological Surgery | DX: M50.822 Other cervical disc disorders at C5-C6 level (principal); Z98.1 Arthrodesis status ==

== ENCOUNTER 2018-07-27 15:56 | Inpatient (IN) | payer OTHER ==
[2018-07-27] MEDS ORDERED: NS 1,000 ML IV ONE (16:24)
[2018-07-27 16:32] LABS: PLATELET COUNT 362 10^3/uL (150-400)
[2018-07-27] MEDS ORDERED: HYDROmorphONE/DILAUDID 2 MG/ML INJ IVP ONE (16:50)
[2018-07-27] MEDS ORDERED: ONDANSETRON 4 MG/2 ML VIAL IVP ONE (16:50)
[2018-07-27] MEDS ORDERED: methylPREDNISolone SOD SUCC 125 MG/2 ML VIAL IVP ONE (16:53)
--- NOTE | 2018-07-27 16:53 | EDPHY ---
H & P Stated Complaint: diffuse abdominal pain Time Seen by Provider: 07/27/18 16:51 HPI/ROS: CHIEF COMPLAINT: Abdominal pain, vomiting HISTORY OF PRESENT ILLNESS: 63-year-old female with lupus and prior small- bowel obstructions presents with severe abdominal pain. Onset constipation several days ago. She took laxatives last evening. Onset of abdominal cramping this morning, followed by 2 small bowel movements. Since then she has had gradually increasing generalized abdominal pain. The pain is now severe and associated with vomiting. Similar to prior small-bowel obstructions. Currently on prednisone 20 mg daily. Did not take her normal dosage of prednisone today and is concerned about adrenal crisis. REVIEW OF SYSTEMS: complete 10 point ROS reviewed and is negative except for the noted elements in the HPI - Personal History Current Tetanus/Diphtheria Vaccine: No Current Tetanus Diphtheria and Acellular Pertussis (TDAP): No Tetanus Vaccine Date: last 10 years - Medical/Surgical History Hx Asthma: No Hx Chronic Respiratory Disease: No Hx Diabetes: No Hx Cardiac Disease: No Hx Renal Disease: No Hx Cirrhosis: No Hx Alcoholism: No Hx HIV/AIDS: No Hx Splenectomy or Spleen Trauma: No Other PMH: Lupus, gallbladder removed, appy, hysterectomy, hypothyroid, Pancreatitis, cervical fusion, csection - Social History Smoking Status: Former smoker - Physical Exam Exam: General Appearance: [Alert, pleasant] Eyes: [Pupils equal and round, no conjunctival pallor or injection] ENT, Mouth: [Mucous membranes moist] Neck: [Normal inspection] Respiratory: [Lungs are clear to auscultation] Cardiovascular: [Regular rate and rhythm] Gastrointestinal: [Abdomen is soft, diffusely tender, decreased bowel sounds] Neurological: [A&O, nonfocal, normal gait] Skin: [Warm and dry] Extremities: [Normal inspection] Psychiatric: [Mood and affect normal] Constitutional: Initial Vital Signs Temperature (C) 36.6 C 07/27/18 16:17 Heart Rate 66 07/27/18 16:17 Respiratory Rate 16 07/27/18 16:17 Blood Pressure 138/84 H 07/27/18 16:17 O2 Sat (%) 100 07/27/18 16:17 O2 Delivery Mode Nasal Cannula,Humidified O2 (L/minute) 2.5 Allergies/Adverse Reactions: doxycycline Allergy (Verified 07/27/18 16:22) Home Medications: Medication Instructions Recorded Estradiol [Vivelle-Dot 0.0375MG 0.0375 mg TD TuFr@0800 07/27/18 (*)] Herbals/Supplements -Info Only 1 ea PO DAILY 07/27/18 Hydroxychloroquine Sulfate 400 mg PO DAILY 07/27/18 [Plaquenil 200 mg (*)] Levothyroxine [Synthroid 100 mcg 100 mcg PO DAILY06 07/27/18 (*)] Linaclotide [Linzess] 145 mcg PO DAILY PRN 07/27/18 Liothyronine Sodium [Cytomel 5 mcg 5 mcg PO DAILY 07/27/18 (*)] Lubiprostone [Amitiza 8 mcg (*)] 8 mcg PO BIDMEAL PRN 07/27/18 [place]-3 Ethyl Est-Lovaza [Lovaza 1 1 gm PO HS 07/27/18 gm (*)] QUEtiapine FUMARATE [Seroquel 25 25 - 100 mg PO HS PRN 07/27/18 mg (*)] predniSONE 1 mg PO BID 07/27/18 predniSONE 5 mg PO BID 07/27/18 Medical Decision Making - Diagnostics Imaging Results: Imaging Impressions Abdomen X-Ray 07/28/18 09:07 Impression: Decompressed stomach with well-positioned esophagogastric tube. ED Course/Re-evaluation: This patient presents with abdominal pain and vomiting, most concerning for small bowel obstruction. CT scan of the abdomen pelvis ordered. Dilaudid and Zofran IV given with relief in pain. Tee Pearl was consulted and saw the patient in the emergency department. CT scan reveals a [id number] small-bowel obstruction, results discussed Tee Pearl. Pt already sent to [facility] floor. Tee briceno d/w pt and NGT will be placed. Differential Diagnosis: Differential diagnosis includes though it is not limited to appendicitis, cholecystitis, diverticulitis, pyelonephritis, bowel perforation, small bowel obstruction. - Data Points Laboratory Results: Laboratory Results 07/28/18 11:30 07/28/18 04:33 07/28/18 11:30 WBC 2.72 10^3/uL L 10^3/uL (3.80-9.50) RBC 3.69 10^6/uL L 10^6/uL (4.18-5.33) Hgb 11.9 g/dL L g/dL (12.6-16.3) Hct 36.7 % L % (38.0-47.0) MCV 99.5 fL fL (81.5-99.8) MCH 32.2 pg pg (27.9-34.1) MCHC 32.4 g/dL g/dL (32.4-36.7) RDW 13.3 % % (11.5-15.2) Plt Count 228 10^3/uL 10^3/uL (150-400) MPV 8.4 fL L fL (8.7-11.7) Neut % (Auto) Not Reported Lymph % (Auto) Not Reported [place] % (Auto) Not Reported Eos % (Auto) Not Reported Baso % (Auto) Not Reported Nucleat RBC Rel Count Not Reported Absolute Neuts (auto) Not Reported Absolute Lymphs (auto) Not Reported Absolute Monos (auto) Not Reported Absolute Eos (auto) Not Reported Absolute Basos (auto) Not Reported Absolute Nucleated RBC Not Reported Immature Gran % Not Reported Seg Neutrophils % 48.0 % % Band Neutrophils % 14.3 % % Lymphocytes % 23.5 % % Monocytes % 10.2 % % Eosinophils % 1.0 % % Basophils % 0.0 % % Metamyelocytes % 2.0 % % Myelocytes % 1.0 % % Promyelocytes % 0.0 % % Blast Cells % 0.0 % % Immature Gran # Not Reported Absolute Seg Neuts 1.31 10^3/uL L 10^3/uL (1.70-6.50) Absolute Band Neuts 0.39 10^3/uL 10^3/uL (0.00-0.70) Absolute Lymphocytes 0.64 10^3/uL L 10^3/uL (1.00-3.00) Absolute Monocytes 0.28 10^3/uL L 10^3/uL (0.30-0.80) Absolute Eosinophils 0.03 10^3/uL 10^3/uL (0.03-0.40) Absolute Basophils 0.00 10^3/uL L 10^3/uL (0.02-0.10) Absolute Metamyelocyte 0.05 10^3/mL H 10^3/mL (0.00-0.00) Absolute Myelocytes 0.03 10^3/mL H 10^3/mL (0.00-0.00) Absolute Promyelocytes 0.00 10^3/uL 10^3/uL (0.00-0.00) Absolute Plasma Cells 0.00 10^3/uL 10^3/uL (0.00-0.00) Nucleated RBCs 2.0 /100 WBC H /100 WBC (0-0) RBC/WBC/PLT Morphology NORMAL (NORMAL) Absolute Blast Cells 0.00 10^3/uL 10^3/uL (0.00-0.00) Plasma Cells % 0.0 % % Platelet Estimate ADEQUATE (ADEQ) Medications Given: Estradiol (Vivelle-Dot) 0.0375 mg TD TuFr@0800 ASHKAN Stop: 01/24/19 07:59 Last Admin: 07/28/18 10:32 Dose: Not Given Hydromorphone HCl (Dilaudid) 0.2 - 0.4 mg IVP Q1HR PRN PRN Reason: Pain, Severe Unable to Take PO Stop: 08/06/18 17:58 Last Admin: 07/28/18 20:04 Dose: 0.4 mg Hydroxychloroquine Sulfate (Plaquenil) 400 mg PO DAILY ASHKAN PRN Reason: Protocol Stop: 08/27/18 08:59 Last Admin: 07/28/18 09:57 Dose: Not Given Potassium Chloride/Dextrose/Sod Cl (D5w 1/2 Ns W/ 20 Kcl/L) 1,000 mls @ 125 mls /hr IV CONT ASHKAN Stop: 01/24/19 06:29 Last Admin: 07/28/18 15:52 Dose: 1,000 mls Sodium Chloride (Ns) 500 mls @ 0 mls/hr IV CONT ASHKAN PRN Reason: TKO Stop: 01/24/19 08:59 Last Admin: 07/28/18 08:45 Dose: 500 mls Ceftriaxone Sodium/Dextrose (Rocephin 1 Gm (Premix)) 50 mls @ 100 mls/hr IV HS ASHKAN PRN Reason: Protocol Stop: 08/26/18 19:59 Last Admin: 07/28/18 20:05 Dose: 50 mls Levothyroxine Sodium (Synthroid) 100 mcg PO DAILY06 ASHKAN Stop: 01/24/19 05:59 Last Admin: 07/28/18 09:57 Dose: Not Given Liothyronine Sodium (Cytomel) 5 mcg PO DAILY ASHKAN Stop: 01/24/19 08:59 Last Admin: 07/28/18 09:57 Dose: Not Given Methylprednisolone Sodium Succinate (Solu-Medrol) 10 mg IVP Q12HRS [facility] Stop: 01/24/19 08:59 Last Admin: 07/28/18 20:03 Dose: 10 mg Mineral Oil/Petrolatum/Sodium Cl (Refresh P.M. Ointment) 1 [place] EACHEYE TID PRN PRN Reason: Dry Irritated Eyes Stop: 01/24/19 16:22 Last Admin: 07/28/18 16:28 Dose: 1 [place] Morphine Sulfate (Morphine) 1 - 2 mg IVP Q1HR PRN PRN Reason: Pain, Severe Unable to Take PO Stop: 08/06/18 17:58 Last Admin: 07/28/18 05:00 Dose: 2 mg Qkmff-0-Yvin Ethyl Esters (Lovaza) 1 gm PO HS [facility] Stop: 01/23/19 20:59 Last Admin: 07/28/18 01:38 Dose: Not Given Ondansetron HCl (Zofran) 4 mg IVP Q4HRS PRN PRN Reason: Nausea/Vomiting, Can't Take PO Stop: 01/23/19 17:58 Last Admin: 07/28/18 20:03 Dose: 4 mg Phenol (Chloraseptic [place]) 1 spray PO Q4H PRN PRN Reason: Sore Throat Stop: 01/24/19 16:21 Last Admin: 07/28/18 16:28 Dose: 1 spray Prednisone (Prednisone) 5 mg PO BID [facility] Stop: 01/23/19 20:59 Last Admin: 07/27/18 20:28 Dose: 5 mg Prednisone (Prednisone) 1 mg PO BID [facility] Stop: 01/23/19 20:59 Last Admin: 07/27/18 20:28 Dose: 1 mg Promethazine HCl (Phenergan) 6.25 - 12.5 mg IVP Q6HRS PRN PRN Reason: Nausea/Vomiting, Use 2nd Stop: 01/23/19 17:58 Last Admin: 07/28/18 14:12 Dose: 12.5 mg Discontinued Medications Albumin Human (Alburx 5) Confirm Administered Dose 500 ml IV .STK-MED ONE Stop: 07/27/18 20:54 Last Admin: 07/28/18 01:34 Dose: Not Given Bupivacaine HCl (Sensorcaine 0.5% Vial) Confirm Administered Dose 30 ml .ROUTE .STK-MED ONE Stop: 07/27/18 20:12 Last Admin: 07/27/18 21:58 Dose: 30 ml Fentanyl (Sublimaze) 25 - 100 mcg IVP Q5M PRN PRN Reason: PACU, IMMEDIATE Pain control Stop: 07/27/18 22:32 Last Admin: 07/28/18 00:33 Dose: 50 mcg Hydrocortisone (Solucortef) 100 mg IVP ONCE ONE Stop: 07/28/18 09:10 Last Admin: 07/28/18 10:24 Dose: 100 mg Hydromorphone HCl (Dilaudid) 0.5 mg IVP EDNOW ONE Stop: 07/27/18 16:51 Last Admin: 07/27/18 17:15 Dose: 0.5 mg Hydromorphone HCl (Dilaudid) 0.1 - 0.4 mg IVP Q10M PRN PRN Reason: PACU, PAIN Stop: 07/27/18 22:32 Last Admin: 07/28/18 00:45 Dose: 0.4 mg Sodium Chloride (Ns) 1,000 mls @ 0 mls/hr IV EDNOW ONE; Wide Open PRN Reason: Protocol Stop: 07/27/18 16:25 Last Admin: 07/27/18 16:31 Dose: 1,000 mls Ceftriaxone Sodium/Dextrose (Rocephin 1 Gm (Premix)) 50 mls @ 100 mls/hr IV DAILY ASHKAN PRN Reason: Protocol Stop: 08/01/18 19:59 Last Admin: 07/28/18 10:00 Dose: Not Given Metronidazole/Sodium Chloride (Flagyl 500 Mg (Premix)) 100 mls @ 100 mls/hr IV ONCE ONE PRN Reason: Protocol Stop: 07/27/18 20:57 Last Admin: 07/27/18 21:04 Dose: 100 mls Methylprednisolone Sodium Succinate (Solu-Medrol) 40 mg IVP EDNOW ONE Stop: 07/27/18 16:54 Last Admin: 07/27/18 17:15 Dose: 40 mg Ondansetron HCl (Zofran) 4 mg IVP EDNOW ONE Stop: 07/27/18 16:51 Last Admin: 07/27/18 17:15 Dose: 4 mg Promethazine HCl (Phenergan) 12.5 mg IVP EDNOW ONE Stop: 07/27/18 17:33 Last Admin: 07/27/18 17:52 Dose: Not Given Senna/Docusate Sodium (Senokot-S) 1 - 2 tab PO BID ASHKAN PRN Reason: Protocol Stop: 01/23/19 20:59 Last Admin: 07/28/18 01:41 Dose: Not Given Departure - Departure Disposition: [facility] Acute Clinical Impression: Small bowel obstruction Condition: Fair
[2018-07-27] MEDS ORDERED: PROMETHAZINE HCL 25 MG/ML INJ IVP ONE (17:32)
[2018-07-27] MEDS ORDERED: LORazepam 2 MG/ML INJ IVP PRN (17:59)
[2018-07-27] MEDS ORDERED: POLYETHYLENE GLYCOL 3350 17 GM PKT PO PRN (17:59)
[2018-07-27] MEDS ORDERED: LACTULOSE 20 GM/30 ML UDCUP PO PRN (17:59)
[2018-07-27] MEDS ORDERED: ACETAMINOPHEN 325 MG TAB PO PRN (17:59)
[2018-07-27] MEDS ORDERED: MAGNESIUM HYDROXIDE 30 ML UDCUP PO PRN (17:59)
[2018-07-27] MEDS ORDERED: ONDANSETRON DISINTEGRATING 4 MG TAB PO PRN (17:59)
[2018-07-27] MEDS ORDERED: HYDROmorphONE/DILAUDID 1 MG/ML INJ IVP PRN (17:59)
[2018-07-27] MEDS ORDERED: BISACODYL 10 MG SUPP PR PRN (17:59)
[2018-07-27] MEDS ORDERED: D5W 1/2 NS W/ 20 KCl/L 1,000 ML IV SCH (18:00)
--- NOTE | 2018-07-27 18:58 | GHP ---
DATE OF ADMISSION: 07/27/2018 REASON FOR ADMISSION: Abdominal pain. HISTORY OF PRESENT ILLNESS: Ms. Nieves is a 63-year-old female who developed severe central abdominal pain today. She had some constipation yesterday, took some laxatives and has had little output. She has had some small bowel movements, but nothing that has been alleviating. She has had severe crampy, extreme abdominal pain, which is unusual for her. She finds this reminiscent of previous suspected partial small bowel obstruction. She has had nausea with vomiting. She vomited in our office. She has had chills. No fever. She denies shortness of breath, cough, wheeze or congestion. No gross blood in her stool. She has had multiple prior surgeries, none for small bowel obstruction or adhesions, remote cholecystectomy, appendectomy, hysterectomy, prior C- section and suspected possible other surgery. She has not had any urinary symptoms. No acute musculoskeletal complaints. Underlying lupus has been stable. Her baseline prednisone dose is 12 mg daily. ALLERGIES: Doxycycline. MEDICATIONS: 1. Quetiapine 100 mg nightly. 2. Plaquenil 200 mg 2 tablets twice daily. 3. Synthroid 112 mcg daily. 4. Lorazepam 0.5 mg p.r.n. 5. Cytomel 5 mcg daily. 6. Vagifem 10 mcg vaginal tablet twice per week. 7. [place]-3 fatty acids 2 capsules twice a day. 8. Propranolol 10 mg 2-3 tablets as needed for palpitations. 9. Vivelle-Dot 0.0375 mg patch, changed twice per week. 10. Prednisone total dose 20 mg per day. 11. Prilosec 20 mg daily. 12. Vitamin D. 13. Vitamin K2, Aged garlic extract 14. Wellbutrin 150 mg daily. PAST MEDICAL HISTORY: Lupus, history of hypothyroid, remote pancreatitis, capsular contracture of breast implant, chronic laryngitis, polymyalgia rheumatica. PAST SURGICAL HISTORY: Breast implants, hysterectomy, appendectomy, cholecystectomy, neck fusion, . FAMILY HISTORY: Father alive. Mother in her far later years. Sibling, 1 from lung cancer. Daughter healthy, in her 20s. SOCIAL HISTORY: Nonsmoker, rare consumer of alcohol. Quite physically active. Significant other had recent knee replacement and she has been providing care. REVIEW OF SYSTEMS: GENERAL: She is tired, chilled, no specific fever. HEENT: No headache. No visual changes. No sore throat. No throat challenges. NECK : She denies any lymph node enlargement. LUNGS: No shortness of breath, cough, wheeze or congestion. HEART: No sense of palpitations, chest pain, or irregularity. GI: As per HPI. : No complaints. SKIN: No acute rash. Joints: No acute swelling. She does have increased aches and pains about her shoulder and hip girdles. PHYSICAL EXAMINATION: VITAL SIGNS: In the ER, blood pressure was 138/84, heart rate 66, saturation 100% on room air, temperature 36.6 degrees. GENERAL: Much more comfortable female, [facility]. HEENT: Grossly unremarkable. No evidence of trauma. Pupils are symmetric. Oropharynx is benign. Speech is fluent. NECK: Without masses. LUNGS: Clear, dry cough. No crackles or wheeze. HEART: Rafael, regular rate and rhythm without murmurs. ABDOMEN: Diminished bowel sounds. Tender moderately in the lower half of the abdomen. No guarding, rebound or masses currently noted. BREAST AND PELVIC: Exams are deferred. SKIN: Warm, dry, intact. JOINTS: Without acute erythema , warmth or swelling. NEUROVASCULARLY: Otherwise intact. DATABASE: CBC: White blood count 10.05, there is a left shift, hemoglobin 13.4 , platelet count 362. Metabolic panel: Glucose 143. Lipase and liver functions otherwise normal. Bicarb slightly low at 21. CT abdomen and pelvis is pending. ASSESSMENT: Severe abdominal pain, nice improvement with response to Dilaudid IV. She is able sit up with far less distress. She is concerned regarding what her symptoms may represent. CT will be quite helpful. Consider partial small-bowel obstruction with potential complications, diverticulitis or potential perforation which seems less likely. We will await for further test results. We will not initiate any antibiotic therapy. Will continue with pain control. She has had a stress dose of steroids in the ER. Continue with antiemetics and stress reduction. We will continue her regular medicines once those have been reconciled and tailor therapy based on her results. Plan was discussed in detail with the patient, who is in agreement. /[id number]/MODL MTDD
[2018-07-27] MEDS ORDERED: Linaclotide [Linzess] 145 MCG PO PRN (19:10)
[2018-07-27] MEDS ORDERED: LUBIPROSTONE 8 MCG CAP PO PRN (19:10)
[2018-07-27] MEDS ORDERED: BUPIVACAINE 0.5% 30 ML SDV ONE (20:11)
[2018-07-27] MEDS: PROMETHAZINE HCL 25 MG/ML INJ IVP PRN (20:26)
[2018-07-27] MEDS ORDERED: MIDAZOLAM 2 MG/2 ML VIAL ONE ×2 (20:45→20:47)
[2018-07-27] MEDS ORDERED: fentaNYL 250 MCG/5 ML INJ ONE (20:47)
[2018-07-27] MEDS ORDERED: PROPOFOL/EMULSION 500 MG/50 ML BOTTLE IV ONE (20:47)
[2018-07-27] MEDS ORDERED: ALBUMIN 5% 250 ML BOTTLE IV ONE (20:53)
[2018-07-27] MEDS ORDERED: SENNOSIDES/DOCUSATE SODIUM TAB PO SCH (21:00)
[2018-07-27] MEDS ORDERED: predniSONE 1 MG TAB PO SCH (21:00)
[2018-07-27] MEDS ORDERED: predniSONE 5 MG TAB PO SCH (21:00)
[2018-07-27] MEDS ORDERED: ePHEDrine SULFATE 25 MG/5 ML SYR ONE (21:31)
[2018-07-27] MEDS ORDERED: ROCURONIUM 50 MG/5 ML VIAL ONE ×2 (21:31→22:14)
[2018-07-27] MEDS ORDERED: ONDANSETRON 4 MG/2 ML VIAL ONE (21:31)
[2018-07-27] MEDS ORDERED: SUGAMMADEX SODIUM 200 MG/2 ML VIAL IVP ONE (21:31)
[2018-07-27] MEDS ORDERED: KETOROLAC 30 MG/1 ML SDV ONE (21:31)
[2018-07-27] MEDS ORDERED: DIAZEPAM 5 MG/ML 1 ML SYR IVP PRN (21:32)
[2018-07-27] MEDS ORDERED: LR 500 ML IV PRN (21:32)
[2018-07-27] MEDS ORDERED: ALBUTEROL 3 ML DEYVIAL IH PRN (21:32)
[2018-07-27] MEDS ORDERED: ONDANSETRON 4 MG/2 ML VIAL IVP PRN (21:32)
[2018-07-27] MEDS ORDERED: DEXAMETHASONE 4 MG/ML VIAL IVP PRN (21:32)
[2018-07-27] MEDS ORDERED: NALOXONE HCL 0.4 MG/ML INJ IVP PRN (21:32)
--- NOTE | 2018-07-27 21:32 | PDANEPAE ---
ANE Past Medical History - Cardiovascular History Hx Hypertension: No Hx Arrhythmias: No Hx Chest Pain: No Hx Coronary Artery / Peripheral Vascular Disease: No Hx CHF / Valvular Disease: No Hx Palpitations: No - Pulmonary History Hx COPD: No Hx Asthma/Reactive Airway Disease: No Hx Recent Upper Respiratory Infection: No Hx Oxygen in Use at Home: No Hx Sleep Apnea: No - Neurologic History Hx Cerebrovascular Accident: No Hx Seizures: No Hx Dementia: No - Endocrine History Hx Diabetes: No Endocrine History Comment: HYPOTHYROID - Renal History Hx Renal Disorders: Yes Renal History Comment: GETS A LOT OF BLADDER INFECTIONS - Liver History Hx Hepatic Disorders: No Hepatic History Comment: PANCREATITIS LAST OVER 10 YRS AGO - Neurological & Psychiatric Hx Hx Neurological and Psychiatric Disorders: Yes Neurological / Psychiatric History Comment: SITUATIONAL ANXIETY/PANIC ATTACKS - Cancer History Hx Cancer: No - Congenital Disorder History Hx Congenital Disorders: No - GI History Hx Gastrointestinal Disorders: Yes Gastrointestinal History Comment: DIVERTICULOSIS - Other Health History Other Health History: LUPUS FLARE 07/2016. RELATED TO NORO VIRUS. SEVERE EYE KERATITIS AND ULCERATIONS. RECENTLY LOW HGB AND HCT. TAKING IRON. HAIR FALLING OUT. SPINAL STENOSIS/RT ARM PARALYSIS - Chronic Pain History Chronic Pain: Yes (SKIN) - Surgical History Prior Surgeries: LETA. HYSTERECTOMY. APPY. LUMBAR LAMINECTOMY. RT LACRIMAL GLAND. LAISHA AUGMENTATION WITH REMVL AND REPLACEMENT ANE Review of Systems Review of Systems: ANE Patient History - Allergies Allergies/Adverse Reactions: doxycycline Allergy (Verified 07/27/18 16:22) - Home Medications Home Medications: Estradiol [Vivelle-Dot 0.0375MG (*)] 0.0375 mg TD TuFr@0800 07/27/18 [Last Taken 07/25/18] Herbals/Supplements -Info Only 1 ea PO DAILY 07/27/18 [Last Taken Unknown] Hydroxychloroquine Sulfate [Plaquenil 200 mg (*)] 400 mg PO DAILY 07/27/18 [ Last Taken 07/27/18] Levothyroxine [Synthroid 100 mcg (*)] 100 mcg PO DAILY06 07/27/18 [Last Taken 08:00] Linaclotide [Linzess] 145 mcg PO DAILY PRN 07/27/18 [Last Taken 2 Months Ago ~] Liothyronine Sodium [Cytomel 5 mcg (*)] 5 mcg PO DAILY 07/27/18 [Last Taken 08:00] Lubiprostone [Amitiza 8 mcg (*)] 8 mcg PO BIDMEAL PRN 07/27/18 [Last Taken 2 Months Ago ~05/27/18] Rupert-3 Ethyl Est-Lovaza [Lovaza 1 gm (*)] 1 gm PO HS 07/27/18 [Last Taken 07/26] QUEtiapine FUMARATE [Seroquel 25 mg (*)] 25 - 100 mg PO HS PRN 07/27/18 [Last Taken 07/26/18] predniSONE 1 mg PO BID 07/27/18 [Last Taken 07/27/18 09:00] predniSONE 5 mg PO BID 07/27/18 [Last Taken 07/27/18 09:00] - NPO status NPO Since - Liquids (Date): 07/27/18 NPO Since - Liquids (Time): 09:00 - Smoking Hx Smoking Status: Former smoker ANE Labs/Vital Signs - Labs Result Diagrams: 07/27/18 16:00 07/27/18 16:00 - Vital Signs Blood Pressure: 117/66 Heart Rate: 70 Respiratory Rate: 16 O2 Sat (%): 97 Height: 170.18 cm Weight: 55.338 kg ANE Physical Exam - Airway Neck exam: FROM Mallampati Score: Class 1 Mouth exam: normal dental/mouth exam - Pulmonary Pulmonary: no respiratory distress, no rales or rhonchi, clear to auscultation - Cardiovascular Cardiovascular: regular rate and rhythym - ASA Status ASA Status: II, E ANE Anesthesia Plan Anesthesia Plan: general endotracheal anesthesia Lines/Monitors: additional IV
[2018-07-27] MEDS ORDERED: PROPOFOL 200 MG/20 ML VIAL ONE ×2 (21:55→22:50)
[2018-07-27] MEDS ORDERED: fentaNYL 100 MCG/2 ML INJ ONE (22:27)
--- NOTE | 2018-07-27 23:15 | POSTOPPROG ---
Post Op Note Date of Operation: 07/27/18 Surgeon: Annamarie Sultana Anesthesiologist: geronimo Anesthesia: GET(General Endotracheal) Pre-op Diagnosis: small bowel obstruction Post-op Diagnosis: same Indication: 63 year old with recurrent small bowel obstruction Procedure: laparoscopy, laparotomy, repair enterotomy, adhesiolysis Findings: tight obstruction almost making closed loop Inf/Abcess present in the surg proc area at time of surgery?: No EBL: Minimal Specimen(s): none
--- NOTE | 2018-07-27 23:35 | POSTANESTH ---
Post Anesthetic Evaluation Cardiovascular Status: Normal, Stable, Similar to Pre-Op Cond Respiratory Status: Normal, Stable, Similar to Pre-op Cond. Level of Consciousness/Mental Status: Unconscious Pain Control: Adequate, Prn Tx Ordered Nausea/Vomiting Control: Adequate, Prn Tx Ordered Complications Possibly Related to Anesthesia: None Noted
[2018-07-28] MEDS ORDERED: HYDROmorphONE/DILAUDID 2 MG/ML INJ ONE (00:15)
[2018-07-28] MEDS ORDERED: fentaNYL 100 MCG/2 ML INJ ONE (00:15)
[2018-07-28] MEDS: fentaNYL 100 MCG/2 ML INJ IVP PRN ×2 (00:19→00:33)
[2018-07-28] MEDS: HYDROmorphONE/DILAUDID 2 MG/ML INJ IVP PRN ×3 (00:20→00:45)
[2018-07-28] MEDS: OMEGA-3 ETHYL EST-LOVAZA 1 GM CAP PO SCH ×2 (01:38→21:08)
[2018-07-28] MEDS: PROMETHAZINE HCL 25 MG/ML INJ IVP PRN ×3 (01:52→14:12)
[2018-07-28] MEDS: HYDROmorphONE/DILAUDID 1 MG/ML INJ IVP PRN ×9 (02:42→21:46)
[2018-07-28] MEDS: ONDANSETRON 4 MG/2 ML VIAL IVP PRN ×4 (05:01→20:03)
--- NOTE | 2018-07-28 05:51 | GOP ---
DATE OF OPERATION: 07/27/2018 SURGEON: Annamarie Sultana MD ANESTHESIA: General. ANESTHESIOLOGIST: Litzy Han MD. PREOPERATIVE DIAGNOSIS: Small bowel obstruction. POSTOPERATIVE DIAGNOSIS: Small bowel obstruction. PROCEDURE PERFORMED: Diagnostic laparoscopy, mini-laparotomy with repair of enterotomy and adhesiolysis. FINDINGS: Mesentery rotated over the small bowel and adhering 1 loop to another essentially creating a closed loop obstruction. SPECIMENS: None. ESTIMATED BLOOD LOSS: Minimal. INDICATIONS: The patient is a 63-year-old woman who presents with her 3rd bowel obstruction within 1 year. Due to the severity of her symptoms, the edema noted on her CT scan and that the obstruction was in a similar place as the CT scan in August, decision was made to go to the operating room. DESCRIPTION OF PROCEDURE: Patient was brought into the operating room, placed supine on the table, and general anesthesia was administered. Her abdomen was prepped and draped in the usual sterile fashion. I infiltrated all sites with 0.5% Marcaine prior to making an incision. I made an incision in her left upper quadrant. I elevated it, I inserted the Veress needle, it passed the hanging drop test. Her abdomen insufflated easily to a pressure of 15 mmHg. Under direct vision, I placed a 5 mm trocar at this site. There were no injuries from Veress needle placement. Under direct vision, I placed a 5 mm trocar in her lower midline incision and a 5 mm trocar in her left lower quadrant. I could see very dilated loops of small bowel. I started running the bowel from the terminal ileum to the ligament of Treitz and there was 1 spot where there was a very tight adhesion that appeared to tether down deep into the mesentery. I continued trying to run the bowel. The bowel was dilated and there was a 1 mm enterotomy noted. Due to the dense adhesions deep down, I elected to make a mini laparotomy. We dissected down through the skin and subcutaneous tissues. I inserted an Julio wound protector. I brought up the loop of bowel. There was very small spillage of enteric contents. I suture repaired the enterotomy with 3-0 Vicryl and imbricated it. The defect was approximately 1-2 mm. I tested the repair and no succus was noted. I continued running the bowel until I could find the area that was tethered. I performed careful adhesiolysis with Metzenbaum scissors and the mesentery of the bowel came over the anti-mesenteric side of the bowel and attached to the mesentery on the opposite side of the bowel as well as to another loop of bowel almost creating a complete closed loop obstruction. Once this was free, I was able to lift this bowel extracorporeally and I found additional bowel that was tethered to each other. I performed adhesiolysis. I was able to fully run the bowel until I came to the ligament of Treitz. I ran the bowel again and looked at the other repair and it was satisfactory. The mesentery where I performed the majority of the adhesiolysis was a little rough and I placed Dirk 1 g and hemostasis was achieved. I returned the bowel to the abdominal cavity. Suction was performed. I closed the fascia with 0 Vicryl and skin with jayden. I placed a silver Mepilex dressing. The 2 laparoscopic incisions I closed with 4-0 Monocryl and placed Steri-Strips. She was awakened in the operating room, extubated and transferred to PACU in stable condition. /[id number]/MODL MTDCharlene
[2018-07-28 06:05] LABS: PLATELET COUNT 278 10^3/uL (150-400)
[2018-07-28] MEDS: D5W 1/2 NS W/ 20 KCl/L 1,000 ML IV SCH ×2 (07:41→15:52)
--- NOTE | 2018-07-28 08:00 | GCON ---
DATE OF CONSULTATION: 07/27/2018 CHIEF COMPLAINT: Small bowel obstruction. HISTORY OF PRESENT ILLNESS: The patient is a 63-year-old woman with a history of lupus, on prednison e, who presented to Dr. Servin's office today with severe abdominal pain. Her abdominal pain was s o severe that they required EMS to transport her to the hospital. The hospital labs were obtained wh ich showed a white count of 10, and her potassium and creatinine were within normal limits. She had a CT scan performed of her abdomen and pelvis which showed a partial small bowel obstruction with vinicius e mesenteric edema. Interestingly, this is in the same location as the August 2017 exam. She cont inues to have nausea, vomiting. She has not been passing gas. PAST MEDICAL HISTORY: Lupus, on chronic steroids; remote history of cocaine abuse; hypothyroidism; a nxiety; gastroesophageal reflux disease; question of polymyalgia rheumatica. PAST SURGICAL HISTORY: Breast implants, hysterectomy, appendectomy, cholecystectomy, neck fusion, C- section. FAMILY HISTORY: Her mother when she was much older. There is a history of lung cancer. SOCIAL HISTORY: She is a nonsmoker. REVIEW OF SYSTEMS: She does have joint pain and fatigue. Otherwise, no headaches, change in vision, changes in hearing. No sore throat. No shortness of breath, coughing. No chest pain, palpitations . No urinary complaints. No rashes. PHYSICAL EXAM: VITAL SIGNS: 36.6, 66, 138/84, 100% on room air. GENERAL: Pleasant, sitting up in bed. HEENT: Normocephalic. No gross hearing deficits. Mucous membranes moist. Pupils equal and r ound. No scleral icterus. LUNGS: Clear to auscultation bilaterally. No increased work of breathin g. CARDIAC: Regular rate. No peripheral edema. ABDOMEN: Hypoactive bowel sounds. Tender, especi ally in the upper abdomen. No rebound or guarding. SKIN: Warm and dry. NEURO: Grossly intact. P SYCH: Mood and affect normal. RESULTS REVIEWED: I personally reviewed the results of her CT scan, and I was particularly concerned because there was mesenteric edema. IMPRESSION AND PLAN: The patient is a 63-year-old with a small bowel obstruction. We discussed watc hful waiting, although she has had about 3 episodes in the past year. We discussed NG placement, but she is very concerned as she has had some pretty traumatic nosebleeds, including hemorrhaging that h as required ENT to help control. We also discussed going to the operating room for diagnostic laparo scopy, possible laparotomy, adhesiolysis, possible small bowel resection. Risks and benefits were di scussed. She had time to discuss this with Dr. Servin, who also agrees about going to the operatin g room. She received stress dose steroids, Rocephin, Flagyl, traffic control technician to operating room. /[id number]/MODL
--- NOTE | 2018-07-28 08:48 | SOAPPROG ---
SOAP Progress Note Assessment/Plan: Assessment/Plan: 63yo F POD#1 s/p ex lap, repair enterotomy and adhesiolysis for SBO Nausea - has zofran and phenergan ordered Continue NGT to suction No flatus or BM yet NPO - few ice chips for comfort IV antibiotics IV fluids Appreciate Dr. Servin input S: had a hard night. O: comfortable, NAD NG tube in place Hypoactive BS Dressing in place 08/02/18 17:37 Objective: Vital Signs Temp Pulse Resp BP Pulse Ox 37.5 C 94 16 84/52 L 94 07/28/18 07:32 07/28/18 07:32 07/28/18 07:32 07/28/18 08:15 07/28/18 07:32 Laboratory Results 07/28/18 04:33 07/28/18 04:33 07/27/18 07/28/18 07/29/18 05:59 05:59 05:59 Intake Total 1400 Output Total 500 Balance 900 ICD10 Worksheet Patient Problems: Problems Problem Status Onset Small bowel obstruction Acute Abdominal pain Acute Arthrodesis status Acute Cervical radicular pain Acute Cervical spinal stenosis Acute Constipation Acute
[2018-07-28] MEDS ORDERED: Herbals/Supplements -Info Only PO SCH (09:00)
[2018-07-28] MEDS ORDERED: NS 500 ML IV SCH (09:00)
[2018-07-28] MEDS ORDERED: HYDROCORTISONE 100 MG/2 ML VIAL IVP ONE (09:09)
--- NOTE | 2018-07-28 09:54 | ASMTCMCOM ---
CM Note CM Note Notes: Pt is a 63 y/o female admitted for abdominal pain. This is a [facility] pt. Pt went to surgery for an ex lap, repair enterotomy and adhesiolysis for SBO. Pt is currently NPO and allowed to have ice chips. No flatus or BM yet. Pt should not have any d/c needs. Pt has an active lifestyle and usually healthy. CM available for changes. Plan: Independent Date Signed: 07/28/2018 09:53 AM Electronically Signed By:TANYA Lucio
[2018-07-28] MEDS: HYDROXYCHLOROQUINE SULFATE 200 MG TAB PO SCH (09:57)
[2018-07-28] MEDS: LIOTHYRONINE SODIUM 5 MCG TAB PO SCH (09:57)
[2018-07-28] MEDS: LEVOTHYROXINE 100 MCG TAB PO SCH (09:57)
[2018-07-28] MEDS: methylPREDNISolone SOD SUCC 40 MG/ML VIAL IVP SCH ×2 (10:21→20:03)
[2018-07-28] MEDS: ESTRADIOL VIVELLE 0.0375 MG PATCH TD SCH (10:32)
[2018-07-28 12:18] LABS: PLATELET COUNT 228 10^3/uL (150-400)
--- NOTE | 2018-07-28 15:36 | PDMN ---
Medical Necessity Medical necessity: Change to inpt as of 07/28/18 @ 15:26 per MD order and MCG M- 210, Intestinal Obstruction and MCG S-840, Lysis of Adhesions, 3 days, IP only list. 63 y/o admitted w/SBO, underwent diagnostic laparoscopy, laparotomy w /repair of enterotomy and adhesiolysis. Ext LOS>2Mn for ongoing management/post- op care of above.
[2018-07-28] MEDS: PHENOL 177 ML THROAT SPRAY PO PRN (16:28)
[2018-07-28] MEDS: PETROLAT,WHT/MIN OIL/SOD CHL 3.5 GM OPHT.OINT EACHEYE PRN (16:28)
[2018-07-28] MEDS ORDERED: ACETAMINOPHEN 650 MG SUPP PR PRN (20:56)
--- NOTE | 2018-07-28 21:45 | SOAPPROG ---
SOAP Progress Note Assessment/Plan: Assessment:Sp SBO, with reisk of peritonitis. Plan: Continue with antibiotics. Continue fluids due to hypotension. One bolus of hydrocortisone to help support BP considering her half-way steroid use. 07/28/18 21:41 Subjective: Had significant pain this morning. Doing better by noon. No gas per rectum. Mild fever without chills. Objective: Vital Signs Temp Pulse Resp BP Pulse Ox 100.7 F 87 16 95/56 L 91 L 07/28/18 21:20 07/28/18 19:49 07/28/18 19:49 07/28/18 19:49 07/28/18 19:49 07/27/18 07/28/18 07/29/18 05:59 05:59 05:59 Output Total 650 Balance -650 Lungs clear to asc. COR RRR. Abd with absent bowel sounds. No edema. ICD10 Worksheet Patient Problems: Problems Problem Status Onset Small bowel obstruction Acute Abdominal pain Acute Arthrodesis status Acute Cervical radicular pain Acute Cervical spinal stenosis Acute Constipation Acute
[2018-07-29] MEDS: HYDROmorphONE/DILAUDID 1 MG/ML INJ IVP PRN ×5 (00:21→21:00)
[2018-07-29] MEDS: D5W 1/2 NS W/ 20 KCl/L 1,000 ML IV SCH ×3 (01:09→16:43)
[2018-07-29] MEDS: PHENOL 177 ML THROAT SPRAY PO PRN (01:58)
[2018-07-29] MEDS: PETROLAT,WHT/MIN OIL/SOD CHL 3.5 GM OPHT.OINT EACHEYE PRN (01:59)
[2018-07-29] MEDS: PROMETHAZINE HCL 25 MG/ML INJ IVP PRN ×3 (02:21→16:11)
[2018-07-29] MEDS: LEVOTHYROXINE 100 MCG TAB PO SCH (04:58)
[2018-07-29] MEDS: ONDANSETRON 4 MG/2 ML VIAL IVP PRN ×2 (05:12→10:51)
[2018-07-29] MEDS: methylPREDNISolone SOD SUCC 40 MG/ML VIAL IVP SCH ×2 (08:26→21:01)
[2018-07-29] MEDS: LIOTHYRONINE SODIUM 5 MCG TAB PO SCH (08:54)
[2018-07-29] MEDS: HYDROXYCHLOROQUINE SULFATE 200 MG TAB PO SCH (08:54)
--- NOTE | 2018-07-29 08:58 | SOAPPROG ---
SOAP Progress Note Assessment/Plan: Assessment: 63yo F s/p ex-lap adhesiolysis - VSS - NGT output remains high, no bowel sounds - cont current management, await bowel function. - needs to ambulate, OOBTC Plan: 07/29/18 08:57 Subjective: feels a little better today Objective: Vital Signs Temp Pulse Resp BP Pulse Ox 37.7 C 93 16 104/70 94 07/29/18 07:40 07/29/18 07:40 07/29/18 07:40 07/29/18 07:40 07/29/18 07:40 07/28/18 07/29/18 07/30/18 05:59 05:59 05:59 Output Total 1600 Balance -1600 ICD10 Worksheet Patient Problems: Problems Problem Status Onset Small bowel obstruction Acute Abdominal pain Acute Arthrodesis status Acute Cervical radicular pain Acute Cervical spinal stenosis Acute Constipation Acute
--- NOTE | 2018-07-29 12:19 | SOAPPROG ---
SOAP Progress Note Assessment/Plan: Assessment:Sp SBO, with reisk of peritonitis, doing well post op. Eye pain, likely due to dry eye while sleping, Cannot RO corneal abraision. Plan: Continue with antibiotics. Continue fluids due to hypotension. I patched her eye for temporary relief and to keep the eye moist. [facility] Ophthamology consult if eye pain persists. 07/28/18 21:41 07/29/18 12:18 Subjective: R eye ius painful. Throat is sore from NG tube. Objective: Vital Signs Temp Pulse Resp BP Pulse Ox 99.8 F 87 14 104/62 93 07/29/18 11:57 07/29/18 11:57 07/29/18 11:57 07/29/18 11:57 07/29/18 11:57 07/28/18 07/29/18 07/30/18 05:59 05:59 05:59 Output Total 1600 550 Balance -1600 -550 NG output high. Lungs clear. COR RRR. Eye red. No photphobia ICD10 Worksheet Patient Problems: Problems Problem Status Onset Small bowel obstruction Acute Abdominal pain Acute Arthrodesis status Acute Cervical radicular pain Acute Cervical spinal stenosis Acute Constipation Acute
[2018-07-29] MEDS: LORazepam 2 MG/ML INJ IVP PRN ×2 (14:09→18:34)
[2018-07-29] MEDS: OMEGA-3 ETHYL EST-LOVAZA 1 GM CAP PO SCH (21:01)
[2018-07-30] MEDS: D5W 1/2 NS W/ 20 KCl/L 1,000 ML IV SCH ×3 (01:12→16:12)
[2018-07-30] MEDS: PHENOL 177 ML THROAT SPRAY PO PRN ×2 (02:12→22:44)
[2018-07-30] MEDS: LORazepam 2 MG/ML INJ IVP PRN ×3 (04:18→22:50)
[2018-07-30] MEDS: HYDROmorphONE/DILAUDID 1 MG/ML INJ IVP PRN ×2 (04:18→16:08)
[2018-07-30] MEDS: LEVOTHYROXINE 100 MCG TAB PO SCH (04:54)
[2018-07-30] MEDS: HYDROXYCHLOROQUINE SULFATE 200 MG TAB PO SCH (09:06)
[2018-07-30] MEDS: LIOTHYRONINE SODIUM 5 MCG TAB PO SCH (09:06)
[2018-07-30] MEDS: methylPREDNISolone SOD SUCC 40 MG/ML VIAL IVP SCH ×2 (09:39→21:44)
--- NOTE | 2018-07-30 09:39 | SOAPPROG ---
SOAP Progress Note Assessment/Plan: Assessment:Sp SBO, with reisk of peritonitis, doing well post op. Eye pain, likely due to dry eye while sleping, Cannot RO corneal abraision. kPt tends to sleep with her eyes open Plan: Continue with antibiotics. Continue fluids I patched her eye for temporary relief and to keep the eye moist. [facility] Ophthamology consult if eye pain persists. Encourage ambulation today. 07/28/18 21:41 07/29/18 12:18 07/30/18 09:38 Subjective: Able to get by with less pain medication. Sleep better last night. R eye still with patch. Objective: Vital Signs Temp Pulse Resp BP Pulse Ox 98.2 F 77 16 109/71 90 L 07/30/18 07:57 07/30/18 07:57 07/30/18 07:57 07/30/18 07:57 07/30/18 07:57 07/29/18 07/30/18 07/31/18 05:59 05:59 05:59 Output Total 1600 2525 Balance -1600 -2525 Minimal bowel sounds. Lungs clear. COR RRR. Saturations good on RA while asleep. NG tube draining well on intermittent suction. ICD10 Worksheet Patient Problems: Problems Problem Status Onset Small bowel obstruction Acute Abdominal pain Acute Arthrodesis status Acute Cervical radicular pain Acute Cervical spinal stenosis Acute Constipation Acute
--- NOTE | 2018-07-30 10:38 | SOAPPROG ---
SOAP Progress Note Assessment/Plan: Assessment: 63yo F s/p ex-lap adhesiolysis - VSS - NGT slowing 400 from 900 and clearing. Reassuring - abdomen is soft, has some hypoactive bowel sounds - needs get OOB. Her RN today has had her for the past couple and the patient hasnt really done much. We discussed ambulating at least TID today - await bowel function Plan: 07/29/18 08:57 07/30/18 10:36 Subjective: in bed, tired Objective: Vital Signs Temp Pulse Resp BP Pulse Ox 36.8 C 77 16 109/71 90 L 07/30/18 07:57 07/30/18 07:57 07/30/18 07:57 07/30/18 07:57 07/30/18 07:57 07/29/18 07/30/18 07/31/18 05:59 05:59 05:59 Output Total 1600 6342 Balance -1600 -4258 ICD10 Worksheet Patient Problems: Problems Problem Status Onset Small bowel obstruction Acute Abdominal pain Acute Arthrodesis status Acute Cervical radicular pain Acute Cervical spinal stenosis Acute Constipation Acute
[2018-07-30 11:27] LABS: PLATELET COUNT 202 10^3/uL (150-400)
[2018-07-30] MEDS: KETOROLAC 15 MG/1 ML SDV IVP PRN (22:35)
[2018-07-30] MEDS: PETROLAT,WHT/MIN OIL/SOD CHL 3.5 GM OPHT.OINT EACHEYE PRN (22:45)
[2018-07-30] MEDS: PANTOPRAZOLE SODIUM 40 MG VIAL IVP SCH (23:13)
[2018-07-31] MEDS: HYDROXYCHLOROQUINE SULFATE 200 MG TAB PO SCH (09:38)
[2018-07-31] MEDS: D5W 1/2 NS W/ 20 KCl/L 1,000 ML IV SCH (10:22)
[2018-07-31] MEDS: LORazepam 2 MG/ML INJ IVP PRN ×2 (10:38→21:40)
[2018-07-31] MEDS: methylPREDNISolone SOD SUCC 40 MG/ML VIAL IVP SCH ×2 (10:45→20:31)
[2018-07-31] MEDS: PANTOPRAZOLE SODIUM 40 MG VIAL IVP SCH ×2 (10:47→20:31)
[2018-07-31] MEDS: HYDROmorphONE/DILAUDID 1 MG/ML INJ IVP PRN (11:40)
--- NOTE | 2018-07-31 14:30 | ASMTCMCOM ---
CM Note CM Note Notes: CM spoke to KAREN Lagos regarding d/c POC. Pt is currently NPO. Pt is only allowed to have ice chips. Pt has an NG tube in. Pt will most likely d/c independent when medically stable. PT worked w/ pt and have cleared her without any needs. CM available for changes. Plan: Independent Date Signed: 07/31/2018 02:29 PM Electronically Signed By:TANYA Lucio
--- NOTE | 2018-07-31 15:18 | SOAPPROG ---
SOAP Progress Note Assessment/Plan: Assessment/Plan: 63yo F POD#4 s/p ex lap, repair enterotomy and adhesiolysis for SBO Nausea resolved Continue NGT to suction - still high output. correct position. No flatus or BM yet. Improved bowel sounds today NPO - few ice chips for comfort. Consider TPN if prolonged NPO IV antibiotics IV fluids Follow labs Appreciate Dr. Servin input Ophtho consult for eye pain/dry eye. Discussed w Dr. Tolbert S: feeling better today other than eye pain. No nausea, abdominal pain, cramping , or fevers. O: comfortable, NAD, daughter at bedside NG tube in place, thin bilious fluid in canister +BS, soft, nontender, minimally distended Midline dressing in place, minimal staining. 07/31/18 15:18 07/31/18 15:20 Objective: Vital Signs Temp Pulse Resp BP Pulse Ox 36.9 C 77 16 126/79 H 97 07/31/18 11:18 07/31/18 11:18 07/31/18 11:18 07/31/18 11:18 07/31/18 11:18 Laboratory Results 07/30/18 10:35 07/30/18 10:35 07/30/18 07/31/18 08/01/18 05:59 05:59 05:59 Intake Total 0 Output Total 9273 5251 343 Balance -0311 -6819 -700 ICD10 Worksheet Patient Problems: Problems Problem Status Onset Small bowel obstruction Acute Abdominal pain Acute Arthrodesis status Acute Cervical radicular pain Acute Cervical spinal stenosis Acute Constipation Acute
--- NOTE | 2018-07-31 20:35 | SOAPPROG ---
SOAP Progress Note Assessment/Plan: Assessment:Sp SBO, with reisk of peritonitis, doing well post op. Eye pain, likely due to dry eye while sleping, Cannot RO corneal abraision. Pt tends to sleep with her eyes open Slowly improving. Plan: Discussed eye pain with Dr. Marino. Will see her in AM if symptoms persist. Continue to encourage walking. 07/28/18 21:41 07/29/18 12:18 07/30/18 09:38 07/31/18 20:34 Subjective: Having some anxiety today. Intermittent abdominal pain. Objective: Vital Signs Temp Pulse Resp BP Pulse Ox 99.6 F 73 18 117/79 100 07/31/18 20:00 07/31/18 20:00 07/31/18 20:00 07/31/18 20:00 07/31/18 20:00 Laboratory Results 07/30/18 10:35 07/30/18 10:35 07/30/18 07/31/18 08/01/18 05:59 05:59 05:59 Intake Total 0 1375 Output Total 2525 2925 1400 Balance -2525 -2925 -25 Bowel sounds significantly increased. Lungs clear. Deminsihed NG output, however intermittent suction has failed. ICD10 Worksheet Patient Problems: Problems Problem Status Onset Small bowel obstruction Acute Abdominal pain Acute Arthrodesis status Acute Cervical radicular pain Acute Cervical spinal stenosis Acute Constipation Acute
[2018-07-31] MEDS: KETOROLAC 15 MG/1 ML SDV IVP PRN (22:12)
[2018-08-01] MEDS: D5W 1/2 NS W/ 20 KCl/L 1,000 ML IV SCH ×3 (03:08→21:56)
[2018-08-01] MEDS: LORazepam 2 MG/ML INJ IVP PRN ×5 (05:44→22:24)
[2018-08-01] MEDS: KETOROLAC 15 MG/1 ML SDV IVP PRN ×3 (05:44→21:50)
[2018-08-01 06:12] LABS: PLATELET COUNT 263 10^3/uL (150-400)
--- NOTE | 2018-08-01 08:41 | SOAPPROG ---
SOAP Progress Note Assessment/Plan: Assessment/Plan: 63yo F POD#5 s/p ex lap, repair enterotomy and adhesiolysis for SBO Nausea resolved Continue NGT to suction until return of bowel function. No flatus or BM yet. Hypoactive. Recheck abd xray - post op ileus vs SBO? NPO - few ice chips for comfort. Consider TPN if prolonged NPO IV antibiotics IV fluids Follow labs Appreciate Dr. Servin input Discussed w Dr. Tolbert S: still no gas or BM. persistent eye pain. No nausea, abdominal pain, cramping , or fevers. O: comfortable, NAD NG tube in place, thin bilious fluid in canister. low wall suction. +BS, soft, nontender, minimally distended Midline dressing in place, minimal staining. 08/01/18 08:42 08/01/18 08:44 Objective: Vital Signs Temp Pulse Resp BP Pulse Ox 36.7 C 61 12 114/64 97 08/01/18 07:30 08/01/18 07:30 08/01/18 07:30 08/01/18 07:30 08/01/18 07:30 Laboratory Results 08/01/18 05:32 08/01/18 05:32 07/31/18 08/01/18 08/02/18 05:59 05:59 05:59 Intake Total 0 1375 Output Total 2925 1800 Balance -2925 -425 ICD10 Worksheet Patient Problems: Problems Problem Status Onset Small bowel obstruction Acute Abdominal pain Acute Arthrodesis status Acute Cervical radicular pain Acute Cervical spinal stenosis Acute Constipation Acute
[2018-08-01] MEDS: methylPREDNISolone SOD SUCC 40 MG/ML VIAL IVP SCH ×2 (10:18→21:50)
[2018-08-01] MEDS: PANTOPRAZOLE SODIUM 40 MG VIAL IVP SCH ×2 (10:18→21:49)
[2018-08-01] MEDS: HYDROXYCHLOROQUINE SULFATE 200 MG TAB PO SCH (10:19)
[2018-08-01] MEDS: ESTRADIOL VIVELLE 0.0375 MG PATCH TD SCH (10:28)
[2018-08-01] MEDS ORDERED: CEPACOL LOZENGE PO PRN (16:30)
--- NOTE | 2018-08-01 22:01 | SOAPPROG ---
SOAP Progress Note Assessment/Plan: Assessment:Sp SBO, doing well post op. Eye pain, likely due to dry eye while sleping, Cannot RO corneal abraision. Ned Zuñiga saw patient today who found a small ulcer on R cornea and dry eye deratopathy. Pt tends to sleep with her eyes open Slowly improving. Plan: Will try clear liquids with NG clamped for one hour after taking clears. Will start some oral meds for thyroid and anxiety. Continue to follow closely. Continue to encourage walking. 07/28/18 21:41 07/29/18 12:18 07/30/18 09:38 07/31/18 20:34 08/01/18 22:00 Subjective: Was sleping when I came by in the morning. Called by daughter around noon due to increaed anxiety. This evening, anxiety is better however she is still very anxious. Eye pain improved. Minimal abdominal pain. No gas yet. Objective: Vital Signs Temp Pulse Resp BP Pulse Ox 98.9 F 66 18 121/74 H 99 08/01/18 19:55 08/01/18 19:55 08/01/18 19:55 08/01/18 19:55 08/01/18 19:55 Laboratory Results 08/01/18 05:32 08/01/18 05:32 07/31/18 08/01/18 08/02/18 05:59 05:59 05:59 Intake Total 0 1375 1000 Output Total 2925 1800 700 Balance -2925 -425 300 Lungs clear to auscultation. Cor RRR. Bowel sounds present. ICD10 Worksheet Patient Problems: Problems Problem Status Onset Small bowel obstruction Acute Abdominal pain Acute Arthrodesis status Acute Cervical radicular pain Acute Cervical spinal stenosis Acute Constipation Acute
[2018-08-02] MEDS: LORazepam 2 MG/ML INJ IVP PRN ×5 (02:59→22:10)
[2018-08-02] MEDS: D5W 1/2 NS W/ 20 KCl/L 1,000 ML IV SCH ×3 (05:24→22:09)
[2018-08-02] MEDS: LEVOTHYROXINE 100 MCG TAB PO SCH (05:24)
[2018-08-02] MEDS: LIOTHYRONINE SODIUM 5 MCG TAB PO SCH ×2 (05:27→11:04)
--- NOTE | 2018-08-02 08:36 | SOAPPROG ---
SOAP Progress Note Assessment/Plan: Assessment:Sp SBO, doing ok post op. Eye pain, likely due to dry eye while sleping, Ned Zuñiga saw patient yesterdday and found a small ulcer on R cornea and dry eye deratopathy. Pt tends to sleep with her eyes open Slowly improving. Doing OK so far without NG Plan: Follow closely. Hopefully will not need to re-insert NG tube. Continue to encourage walking. 07/28/18 21:41 07/29/18 12:18 07/30/18 09:38 07/31/18 20:34 08/01/18 22:00 08/02/18 08:35 Subjective: NG tkube fell out at 2:00 this AM. No nausea or increased abdominal pain at this time. No sense of bloating. Less anxious than yesterday evening. Objective: Vital Signs Temp Pulse Resp BP Pulse Ox 99 F 63 18 130/80 H 96 08/02/18 07:50 08/02/18 07:50 08/02/18 07:50 08/02/18 07:50 08/02/18 07:50 Laboratory Results 08/01/18 05:32 08/01/18 05:32 08/01/18 08/02/18 08/03/18 05:59 05:59 05:59 Intake Total 1375 1000 Output Total 1800 1800 Balance -425 -800 Bowel sounds diminished this morning but present. Afevrile. Oxygen sat is good. ICD10 Worksheet Patient Problems: Problems Problem Status Onset Small bowel obstruction Acute Abdominal pain Acute Arthrodesis status Acute Cervical radicular pain Acute Cervical spinal stenosis Acute Constipation Acute
[2018-08-02] MEDS: KETOROLAC 15 MG/1 ML SDV IVP PRN ×2 (09:24→17:11)
[2018-08-02] MEDS: methylPREDNISolone SOD SUCC 40 MG/ML VIAL IVP SCH ×2 (09:40→22:10)
[2018-08-02] MEDS: PANTOPRAZOLE SODIUM 40 MG VIAL IVP SCH ×2 (09:42→22:10)
[2018-08-02] MEDS: HYDROXYCHLOROQUINE SULFATE 200 MG TAB PO SCH (11:03)
--- NOTE | 2018-08-02 11:28 | SOAPPROG ---
SOAP Progress Note Assessment/Plan: Assessment/Plan: 63yo F POD#6 s/p ex lap, repair enterotomy and adhesiolysis for SBO NGT came out overnight - doing ok so far without worsening pain, distension or nausea NPO - few ice chips for comfort. Consider TPN if prolonged NPO (day 7-10 if no improvement) XR yesterday with post-op ileus, one area of SB dilation, B consolidations of bases IV antibiotics - DC today IV fluids Ophtho yesterday - corneal ulcer Appreciate Dr. Servin input S: still no gas or BM. persistent eye pain. No nausea, abdominal pain, cramping , or fevers. O: comfortable, NAD +BS, soft, nontender, minimally distended Midline dressing in place, minimal staining. Objective: Vital Signs Temp Pulse Resp BP Pulse Ox 37.2 C 63 18 130/80 H 96 08/02/18 07:50 08/02/18 07:50 08/02/18 07:50 08/02/18 07:50 08/02/18 07:50 Laboratory Results 08/01/18 05:32 08/01/18 05:32 08/01/18 08/02/18 08/03/18 05:59 05:59 05:59 Intake Total 1375 1000 Output Total 1800 1800 Balance -425 -800 ICD10 Worksheet Patient Problems: Problems Problem Status Onset Small bowel obstruction Acute Abdominal pain Acute Arthrodesis status Acute Cervical radicular pain Acute Cervical spinal stenosis Acute Constipation Acute
[2018-08-03] MEDS: LEVOTHYROXINE 100 MCG TAB PO SCH (05:52)
[2018-08-03] MEDS: LIOTHYRONINE SODIUM 5 MCG TAB PO SCH (05:52)
[2018-08-03 09:20] LABS: PLATELET COUNT 339 10^3/uL (150-400)
--- NOTE | 2018-08-03 09:28 | SOAPPROG ---
SOAP Progress Note Assessment/Plan: Assessment: 63 yo female POD#7 s/p ex lap, repair enterotomy and adhesiolysis for SBO Plan: Continuing to do well without NGT. No worsening pain or nausea or abdominal distention. Bowel function returning, advance diet to clears Per nurse, patient will be restarting oral prednisone today after consulting her primary care provider. Ophtho consult 2 days ago for corneal ulcer, patient reports persistent pain and requests another consult. Will defer to Dr. Servin's judgement. Subjective: Several small BMs this morning and passing flatus. Patient reports she is extremely hungry, asking to advance diet or start TPN. Persistent eye pain due to corneal ulcer. Objective: General: sitting upright in bed, no acute distress. HENT: Normocephalic, no gross hearing deficits, mucous membranes moist, pupils equal and round. Corneal ulcer of L eye Cardiac: Regular rate and rhythm. No peripheral edema Lungs: Lungs CTA bilaterally. No increased work of breathing Abdomen: Soft, nondistended, nontender. BS present. Midline incision dressing in place with minimal staining. Skin: Warm and dry. Psych: Mood and affect normal 08/03/18 09:21 08/03/18 09:58 08/03/18 21:00 Objective: Vital Signs Temp Pulse Resp BP Pulse Ox 37.0 C 64 16 116/73 96 08/03/18 08:00 08/03/18 08:00 08/03/18 08:00 08/03/18 08:00 08/03/18 08:00 Laboratory Results 08/03/18 09:00 08/02/18 08/03/18 08/04/18 05:59 05:59 05:59 Intake Total 1000 Output Total 1800 200 Balance -800 -200 ICD10 Worksheet Patient Problems: Problems Problem Status Onset Small bowel obstruction Acute Abdominal pain Acute Arthrodesis status Acute Cervical radicular pain Acute Cervical spinal stenosis Acute Constipation Acute
[2018-08-03] MEDS: HYDROXYCHLOROQUINE SULFATE 200 MG TAB PO SCH (09:35)
[2018-08-03] MEDS: PANTOPRAZOLE SODIUM 40 MG VIAL IVP SCH ×2 (09:36→21:31)
[2018-08-03] MEDS: predniSONE 20 MG TAB PO SCH (09:41)
[2018-08-03] MEDS: methylPREDNISolone SOD SUCC 40 MG/ML VIAL IVP SCH (09:42)
--- NOTE | 2018-08-03 10:12 | SOAPPROG ---
CHERRY Progress Note Assessment/Plan: Assessment: 63 yo female POD #7 s/p ex lap, enterotomy w lysis of adhesions 2/2 SBO w/ prolonged ileus, greatly improved in last 24 hours. -Diet being advanced to liquid - dtr will go get good wholesome broth for her to try, she is hungry, passing gas and having small BM's now. -Changed iv solumedrol to oral prednisone. Will give one time dose 20 mg now, likely can decrease tomorrow (she wants to get back down to 12 as soon as able but may need 15 for a few days - will see her response today). -Encouraged oral fluid intake and hopefully d/c IVF -Last day IV abx -corneal abrasion, dry eye - needs to use drops q6 hours (tobradex) was using q 12, use lubricants, warm wet towel - if not better w/ this we can request ophth eval again but need to step up the eye drops first. -Dispo -likely tomorrow if can kacey advanced diet and strength improves - very weak still. Will check on her later today as well. Plan: 08/03/18 10:06 08/03/18 10:12 Subjective: Doing better, had bm x 3 (small), is hungry Objective: Vital Signs Temp Pulse Resp BP Pulse Ox 37.0 C 64 16 116/73 96 08/03/18 08:00 08/03/18 08:00 08/03/18 08:00 08/03/18 08:00 08/03/18 08:00 Laboratory Results 08/03/18 09:00 08/03/18 09:00 08/02/18 08/03/18 08/04/18 05:59 05:59 05:59 Intake Total 1000 Output Total 1800 200 Balance -800 -200 Gen: pleasant, dtr at bedside, a little teary but more optimistic HEENT: bilateral eyes tender w/ mild discharge NEck: soft/supple CV: rrr LUngs: cta b ABD: + BS, dressing in place w/ mild stain not new, tender Ext: 2+ pulses bilat - Pending Discharge Pending Discharge Within 24 Hours: Yes Pending Discharge Within 48 Hours: Yes Pending Discharge Date: 08/04/18 Pending Discharge Time: 11:00 ICD10 Worksheet Patient Problems: Problems Problem Status Onset Cervical spinal stenosis Acute Arthrodesis status Acute Cervical radicular pain Acute Small bowel obstruction Acute Constipation Acute Abdominal pain Acute
--- NOTE | 2018-08-03 11:24 | ASMTCMCOM ---
CM Note CM Note Notes: Pt feeling better, can dc home tomorrow if tolerating advanced diet. Pt cleared to go home with daughter's support. CM available for any needs. DC Plan: Independent Date Signed: 08/03/2018 11:24 AM Electronically Signed By:Aneta Pino RN
[2018-08-03] MEDS: TOBRAMYCIN/DEXAMETH 5 ML OPHT.BTL EACHEYE SCH ×3 (11:39→21:59)
[2018-08-03] MEDS: LACTASE 3,000 UNIT TAB PO SCH (18:36)
[2018-08-03] MEDS ORDERED: methylPREDNISolone SOD SUCC 40 MG/ML VIAL IVP ONE (21:45)
[2018-08-03] MEDS: D5W NS W/ 20 KCl/L 1,000 ML IV SCH (21:48)
[2018-08-03] MEDS: QUEtiapine FUMARATE 25 MG TAB PO PRN (21:58)
[2018-08-04] MEDS: D5W NS W/ 20 KCl/L 1,000 ML IV SCH (05:40)
[2018-08-04] MEDS: KETOROLAC 15 MG/1 ML SDV IVP PRN (08:38)
[2018-08-04] MEDS: LEVOTHYROXINE 100 MCG TAB PO SCH (08:41)
[2018-08-04] MEDS: LIOTHYRONINE SODIUM 5 MCG TAB PO SCH (08:41)
[2018-08-04] MEDS: ESTRADIOL VIVELLE 0.0375 MG PATCH TD SCH (08:43)
[2018-08-04] MEDS: TOBRAMYCIN/DEXAMETH 5 ML OPHT.BTL EACHEYE SCH ×4 (08:46→21:58)
[2018-08-04] MEDS: PANTOPRAZOLE SODIUM 40 MG VIAL IVP SCH ×2 (08:50→20:28)
--- NOTE | 2018-08-04 08:51 | SOAPPROG ---
SOAP Progress Note Assessment/Plan: Assessment/Plan: 63yo F POD#8 s/p ex lap, repair enterotomy and adhesiolysis for SBO No nausea, vomiting, distension after NGt out. Liquid diet until improved bowel function +BM and flatus XR yesterday improved SB dilation OK to shower Ophtho - corneal ulcer Ambulation and IS Appreciate Dr. Servin input S: + gas and flatus yesterday, less today. persistent eye pain. No nausea, abdominal pain, cramping, or fevers. O: comfortable, NAD +BS, soft, nontender, minimally distended Incision CDI, dressing removed Objective: Vital Signs Temp Pulse Resp BP Pulse Ox 37.0 C 58 L 14 141/75 H 96 08/04/18 08:00 08/04/18 08:00 08/04/18 08:00 08/04/18 08:00 08/04/18 08:00 Laboratory Results 08/03/18 09:00 08/03/18 09:00 08/03/18 08/04/18 08/05/18 05:59 05:59 05:59 Intake Total 1031 Output Total 200 Balance -200 1031 ICD10 Worksheet Patient Problems: Problems Problem Status Onset Small bowel obstruction Acute Abdominal pain Acute Arthrodesis status Acute Cervical radicular pain Acute Cervical spinal stenosis Acute Constipation Acute
[2018-08-04] MEDS: predniSONE 20 MG TAB PO SCH (09:09)
[2018-08-04] MEDS: HYDROXYCHLOROQUINE SULFATE 200 MG TAB PO SCH (09:09)
[2018-08-04] MEDS: LACTASE 3,000 UNIT TAB PO SCH ×3 (09:14→18:20)
--- NOTE | 2018-08-04 16:02 | SOAPPROG ---
SOAP Progress Note Assessment/Plan: Assessment: 63 year old female s/p ex lap, repair enterotomy and adhesiolysis for SBO. POD#8 Plan: Continue liquid diet until improved bowel function (+)small, loose BMs Ambulation and IS Appreciate Dr. Servin input S: less flatus today but reports small, loose BMs. Tolerating liquid diet w/o nausea. Reports having 2 Ensure today, feeling bloated and crampy. O: sitting upright in bed, NAD (+)BS, minimally distended. Incision CDI 08/03/18 09:21 08/03/18 09:58 08/03/18 21:00 08/04/18 16:00 Objective: Vital Signs Temp Pulse Resp BP Pulse Ox 36.3 C 63 16 128/72 H 94 08/04/18 12:00 08/04/18 12:00 08/04/18 12:00 08/04/18 12:00 08/04/18 12:00 Laboratory Results 08/03/18 09:00 08/03/18 09:00 08/03/18 08/04/18 08/05/18 05:59 05:59 05:59 Intake Total 1031 Output Total 200 Balance -200 1031 ICD10 Worksheet Patient Problems: Problems Problem Status Onset Small bowel obstruction Acute Abdominal pain Acute Arthrodesis status Acute Cervical radicular pain Acute Cervical spinal stenosis Acute Constipation Acute
[2018-08-04] MEDS: QUEtiapine FUMARATE 25 MG TAB PO PRN (21:57)
--- NOTE | 2018-08-05 00:21 | SOAPPROG ---
Downtime Inpatient Late Entry SOAP Note: Due to busy day, I am recreating the following medical record entry as of this date and time based on the information specified below: Information on which this medical record entry is based: (MD: Please list items, such as nursing notes, labs, imaging, etcetera) She is better today (08-04-18). Bowel sounds limitd but present. Mild basalar rales afebrisle. P Progress diet. Hopefully home in the AM. MD Salena
[2018-08-05] MEDS: LIOTHYRONINE SODIUM 5 MCG TAB PO SCH (08:54)
[2018-08-05] MEDS: HYDROXYCHLOROQUINE SULFATE 200 MG TAB PO SCH (08:54)
[2018-08-05] MEDS: LEVOTHYROXINE 100 MCG TAB PO SCH (08:54)
[2018-08-05] MEDS: LACTASE 3,000 UNIT TAB PO SCH ×3 (08:54→19:07)
[2018-08-05] MEDS: TOBRAMYCIN/DEXAMETH 5 ML OPHT.BTL EACHEYE SCH (08:57)
[2018-08-05] MEDS: PANTOPRAZOLE SODIUM 40 MG VIAL IVP SCH (08:57)
[2018-08-05] MEDS: predniSONE 10 MG TAB PO SCH ×2 (10:21→18:47)
[2018-08-05] MEDS: PANTOPRAZOLE SODIUM 40 MG TAB PO SCH (10:21)
--- NOTE | 2018-08-05 13:39 | SOAPPROG ---
SOAP Progress Note Assessment/Plan: Assessment: Plan: 08/05/18 13:41 SBO: s/p surgery, lysis of adhesions. Bowel function returning slowly. Diet advanced today and tolerating well. Per pt, Dr. Tariq suggested a dose of miralax. I have a call out to Dr. Tariq. Given that her bowel function hasn't returned to normal yet, I am disinclined to d/c today, but will discuss with Dr. Tariq. Subjective: Ate her first solid food today without nausea, abdominal pain. Still hasn't had a good BM. Has had little bits of mucous, loose stool. c/o ongoing RLQ pain. Abdominal Xray this morning without evidence of obstruction. CXR with small L pleural effusion. Objective: Vital Signs Temp Pulse Resp BP Pulse Ox 37.0 C 59 L 16 114/75 98 08/05/18 12:02 08/05/18 12:02 08/05/18 12:02 08/05/18 12:02 08/05/18 12:02 Laboratory Results 08/03/18 09:00 08/03/18 09:00 08/04/18 08/05/18 08/06/18 05:59 05:59 05:59 Intake Total 1031 Balance 1031 General: well-appearing, alert, NAD Neck: no masses, adenopathy Lungs: clear bilaterally Cardiovascular: RRR without murmur Abdomen: quiet, soft, minimal tenderness on R Extremities: no edema ICD10 Worksheet Patient Problems: Problems Problem Status Onset Small bowel obstruction Acute Abdominal pain Acute Arthrodesis status Acute Cervical radicular pain Acute Cervical spinal stenosis Acute Constipation Acute
[2018-08-05] MEDS: predniSONE 20 MG TAB PO SCH (16:05)
--- NOTE | 2018-08-05 16:18 | SOAPPROG ---
SOAP Progress Note Assessment/Plan: Assessment: DOING MUCH BETTER TODAY/AFEBRILE/URINE OUTPUT GOOD/EATING BETTER ABDOMEN SOFT WITH BOWEL SOUNDS MINIMALLY TENDER/WOUND OKAY CHEST CLEAR COR REGULAR RHYTHM EXTREMITIES FULL RANGE OF MOTION WITH NO EDEMA 2 WAY SHOWS SOME CONSTIPATION BUT NO SIGNS OF A SMALL-BOWEL OBSTRUCTION Plan: MIRALAX/DC LEONILA/COURAGE AMBULATION 08/05/18 16:16 Objective: Vital Signs Temp Pulse Resp BP Pulse Ox 37.0 C 59 L 16 114/75 98 08/05/18 12:02 08/05/18 12:02 08/05/18 12:02 08/05/18 12:02 08/05/18 12:02 Laboratory Results 08/03/18 09:00 08/03/18 09:00 08/04/18 08/05/18 08/06/18 05:59 05:59 05:59 Intake Total 1031 Balance 1031 ICD10 Worksheet Patient Problems: Problems Problem Status Onset Small bowel obstruction Acute Abdominal pain Acute Arthrodesis status Acute Cervical radicular pain Acute Cervical spinal stenosis Acute Constipation Acute
[2018-08-05] MEDS ORDERED: LORazepam 1 MG TAB PO PRN (16:24)
[2018-08-05] MEDS ORDERED: POLYETHYLENE GLYCOL 3350 17 GM PKT PO PRN (16:40)
[2018-08-05] MEDS: QUEtiapine FUMARATE 25 MG TAB PO PRN (22:24)
[2018-08-06] MEDS: LEVOTHYROXINE 100 MCG TAB PO SCH ×2 (06:21→08:03)
[2018-08-06 07:47] VITALS: BP 109/73
[2018-08-06] MEDS: LIOTHYRONINE SODIUM 5 MCG TAB PO SCH (08:03)
[2018-08-06] MEDS: predniSONE 10 MG TAB PO SCH (08:05)
[2018-08-06] MEDS: PANTOPRAZOLE SODIUM 40 MG TAB PO SCH (08:06)
[2018-08-06] MEDS: HYDROXYCHLOROQUINE SULFATE 200 MG TAB PO SCH (08:06)
[2018-08-06] MEDS: LACTASE 3,000 UNIT TAB PO SCH ×2 (08:07→12:04)
--- NOTE | 2018-08-06 12:36 | SOAPPROG ---
SOAP Progress Note Assessment/Plan: Assessment: Plan: 08/05/18 13:41 SBO: s/p surgery, lysis of adhesions. Bowel function returning slowly. Diet advanced today and tolerating well. Per pt, Dr. Tariq suggested a dose of miralax. I have a call out to Dr. Tariq. Given that her bowel function hasn't returned to normal yet, I am disinclined to d/c today, but will discuss with Dr. Tariq. 08/06/18 12:36 SBO: s/p surgery. Dr. Tariq in with pt now to remove remaining staple. She is doing well overall and feels ready to go home. Chronic steroid use: has relatively new diagnosis PMR, as well as lupus. Has been gradually weaning down on steroids. Currently on 10mg bid, so will d/c on 9mg bid. She will take 8mg tonight once she is home. Dispo: will d/c to home today. She will f/u with Dr. Servin in the next week. Surgery f/u per Dr. Tariq. 08/06/18 12:38 08/06/18 12:40 Subjective: Feels ready to go home. Had a little BM in response to 1/2 dose miralax. Eating well without nausea, vomiting. Had jayden removed yesterday except for one. Would like it removed before going home. Also concerned about prednisone dose on d/c. Had been tapering down until her recent admission. Has been on 10mg bid of prednisone since yesterday morning. Objective: Vital Signs Temp Pulse Resp BP Pulse Ox 36.6 C 64 16 109/73 99 08/06/18 07:47 08/06/18 07:47 08/06/18 07:47 08/06/18 07:47 08/06/18 07:47 Laboratory Results 08/03/18 09:00 08/03/18 09:00 General: well-appearing, up and walking, no distress ICD10 Worksheet Patient Problems: Problems Problem Status Onset Small bowel obstruction Acute Abdominal pain Acute Arthrodesis status Acute Cervical radicular pain Acute Cervical spinal stenosis Acute Constipation Acute
[2018-08-06] MEDS ORDERED: LIDOCAINE 2% 5 ML SDV ID ONE (12:45)
--- NOTE | 2018-08-06 13:26 | SOAPPROG ---
SOAP Progress Note Assessment/Plan: Assessment: DOING MUCH BETTER TODAY/AFEBRILE/URINE OUTPUT GOOD/EATING BETTER ABDOMEN SOFT WITH BOWEL SOUNDS MINIMALLY TENDER/WOUND OKAY CHEST CLEAR COR REGULAR RHYTHM EXTREMITIES FULL RANGE OF MOTION WITH NO EDEMA 2 WAY SHOWS SOME CONSTIPATION BUT NO SIGNS OF A SMALL-BOWEL OBSTRUCTION Plan: MIRALAX/DC LEONILA/COURAGE AMBULATION 08/05/18 16:16 08/06/18 13:25 wound ok except one staple embedded/ removed with xylocaine and prep abd soft, +bs/ eating/+bm/ home today/ intructions given Objective: Vital Signs Temp Pulse Resp BP Pulse Ox 36.6 C 64 16 109/73 99 08/06/18 07:47 08/06/18 07:47 08/06/18 07:47 08/06/18 07:47 08/06/18 07:47 Laboratory Results 08/03/18 09:00 08/03/18 09:00 ICD10 Worksheet Patient Problems: Problems Problem Status Onset Small bowel obstruction Acute Abdominal pain Acute Arthrodesis status Acute Cervical radicular pain Acute Cervical spinal stenosis Acute Constipation Acute
--- NOTE | 2018-08-06 15:16 | ASDISCHSUM ---
Discharge Information Plan Status:Home with No Needs Medically Cleared to Leave:08/05/2018 Discharge Date:08/06/2018 01:58 PM CM D/C Disposition:Home, Routine, Self-Care ADT D/C Disposition:Home, Routine, Self-Care Projected Discharge Date:08/06/2018 12:00 AM Transportation at D/C:Family Discharge Delay Reason: Follow-Up Date:08/06/2018 12:00 AM Discharge Slot:2 - 12:01 pm - 18:00 pm Final Diagnosis:Small Bowel Obstruction Placement Information Patient Contact Information Contact Name:CARIN Relationship:Daughter Address: Work Phone: City: [facility] Phone: State/Zip Code:[place] Email: Financial Information Financial Class:BC Primary Plan Desc:[facility] [employer] Primary Plan Number:[id number] Secondary Plan Desc: Secondary Plan Number: Assessment Information [facility] CM Progress Note CM Note CM Note Notes: Pt is a 63 y/o female admitted for abdominal pain. This is a [facility] pt. Pt went to surgery for an ex lap, repair enterotomy and adhesiolysis for SBO. Pt is currently NPO and allowed to have ice chips. No flatus or BM yet. Pt should not have any d/c needs. Pt has an active lifestyle and usually healthy. CM available for changes. Plan: Independent Date Signed: 07/28/2018 09:53 AM Electronically Signed By:TANYA Lucio [facility] CM Progress Note CM Note CM Note Notes: CM spoke to KAREN Lagos regarding d/c POC. Pt is currently NPO. Pt is only allowed to have ice chips. Pt has an NG tube in. Pt will most likely d/c independent when medically stable. PT worked w/ pt and have cleared her without any needs. CM available for changes. Plan: Independent Date Signed: 07/31/2018 02:29 PM Electronically Signed By:TANYA Lucio [facility] CM Progress Note CM Note CM Note Notes: Pt feeling better, can dc home tomorrow if tolerating advanced diet. Pt cleared to go home with daughter's support. CM available for any needs. DC Plan: Independent Date Signed: 08/03/2018 11:24 AM Electronically Signed By:Aneta Pino RN Case Management Discharge Plan Note Case Management Discharge Discharge Order Complete? Answers: Yes Patient to Obtain Answers: via Family Medications Transportation Arranged Answers: Family/Friends Discharge Comments Notes: Per notes, patient discharged to home independent with support from daughter. Patient to follow up with Dr. Servin next week. Date Signed: 08/06/2018 03:14 PM Electronically Signed By:Kelly Chapman Intervention Information
--- NOTE | 2018-08-06 21:43 | GDS ---
[f rep st] DISCHARGE SUMMARY DISCHARGE DIAGNOSES: 1. Small bowel obstruction. 2. Corneal ulcers. CONSULTATIONS: Dr. Kimble, General Surgery. HOSPITAL COURSE: The patient is a 63-year-old woman with a complex medical history including multipl e previous surgeries who presented to the emergency department with acute-onset abdominal pain. CT s can showed an acute small bowel obstruction. She was seen in the emergency department by Dr. Lamin frias nd subsequently underwent surgery that evening with lysis of adhesions and repair of enterotomy. Giv en her long-term steroid use she was treated with stress-dosed steroids. By the time of discharge susie rogers was taking 10 mg b.i.d. Prior to that she had been slowly tapering down, so she will discharge karen ing 9 mg b.i.d. daily. She also was diagnosed with a small ulcer on her right cornea and with dry ey es and was started on TobraDex eyedrops. Her postoperative recovery was uneventful except for the sl ow return of bowel function. By discharge she was eating well without abdominal pain, nausea and vom iting. Her stools were still minimal, but she was well enough to return home and she was anxious to leave. Her surgical jayden were removed prior to discharge. MEDICATIONS ON DISCHARGE: Prednisone 9 mg b.i.d., Seroquel 25-100 mg p.o. at bedtime p.r.n., Vivelle -Dot 0.037 mg, hydroxychloroquine 400 mg daily, Lovaza 1 g daily. Cytomel 5 mcg daily, Synthroid 100 mcg daily, Amitiza 8 mcg p.o. b.i.d. p.r.n., Linzess 140 mcg daily p.r.n., tobramycin-dexamethasone ophthalmic drops 1 drop in each eye every 6 hours. FOLLOWUP: Patient was instructed to follow up with Dr. Tariq in the office in 10 days. She was also advised to follow up with Dr. Servin within the next week. /[id number]/MODL
== END 2018-08-06 13:58 | disposition home or self-care (01) | DRG 330 ==
LOC: EDUNIT# → EEVIPCON 15:56 → F3E 18:31 → OBSVTOIN 07-28 15:26
PROVIDERS: ADMIT Internal Medicine; ATTEND Internal Medicine
DX: K56.50 Intestinal adhesions [bands], unspecified as to partial versus complete obstruction (principal); K91.71 Accidental puncture and laceration of a digestive system organ or structure during a digestive system procedure; Z53.31 Laparoscopic surgical procedure converted to open procedure; K56.7 Ileus, unspecified; H16.009 Unspecified corneal ulcer, unspecified eye; M32.9 Systemic lupus erythematosus, unspecified; E03.9 Hypothyroidism, unspecified; Z98.1 Arthrodesis status; Z79.52 Long term (current) use of systemic steroids; Z87.891 Personal history of nicotine dependence
CPT/HCPCS: 96374; 97116-GP; 97161-GP; 97530-GP; G0378; J0696; J1170; J1720; J1885; J2060; J2250; J2270; J2405; J2550; J2704; J2920; J2930; J3010; J7512; P9041

== ENCOUNTER → 2018-10-07 | Outpatient (CLI) | payer OTHER | LOC: FIMAGING 14:27 | PROVIDERS: ATTEND Physician Assistant | DX: Z09 Encounter for follow-up examination after completed treatment for conditions other than malignant neoplasm (principal); M50.323 Other cervical disc degeneration at C6-C7 level; Z98.1 Arthrodesis status ==

== ENCOUNTER → 2018-10-27 | Outpatient (CLI) | payer OTHER | LOC: EMCIMAGING 13:44 | PROVIDERS: ATTEND Internal Medicine | DX: M25.511 Pain in right shoulder (principal); M02.81 Other reactive arthropathies, shoulder; M67.911 Unspecified disorder of synovium and tendon, right shoulder; M25.411 Effusion, right shoulder | CPT/HCPCS: 73221-PN ==